=== PATIENT | male | born 1990 | race Caucasian/White ===

== ENCOUNTER 2019-01-10 06:25 | Inpatient (IN) | payer MEDICAID ==
[2019-01-10] VITALS (10 sets, daily range): BP systolic 149–169; BP diastolic 76–99; BMI 20.9; BMI 25.1
[~2019-01-10] VITALS: Ht 180.3 cm; Wt 68.2 kg
[2019-01-10 07:09] LABS: HEMATOCRIT 35.3 % (42.0-54.0); HEMOGLOBIN 11.1 g/dL (13.5-17.5); MCH 30.1 pg (26.0-34.0); MCHC 31.4 g/dL (31.0-37.0); MCV 95.7 fL (80.0-100.0); MEAN PLATELET VOLUME 10.2 fL (7.4-10.4); RBC 3.69 10x6/uL (4.20-6.10); WBC 7.7 10x3/uL (4.8-10.8)
[2019-01-10 07:16] LABS: CALCIUM 9.1 mg/dL (8.5-10.1); CARBON DIOXIDE 25.6 mmol/L (21.0-32.0); CREATININE - SERUM 10.3 mg/dL (0.6-1.3); POTASSIUM - SERUM 5.6 mmol/L (3.5-5.1)
[2019-01-10] MEDS ORDERED: DULCOLAX5 MG PO (07:26)
--- NOTE | 2019-01-10 07:26 | NUR ---
Called anesthesia (VAL) AND ASKED ABOUT PT BP (189/114), STATED TO REPEAT PT REGULARLY SCHEDULED 25MG HYDRALAZINE PO WITH PRE PROCEDURE MEDICATIONS.
[2019-01-10] MEDS ORDERED: RENVELA800 MG PO (07:27)
[2019-01-10] MEDS ORDERED: LONITEN2.5 MG PO (07:27)
[2019-01-10] MEDS ORDERED: COZAAR100 MG PO (07:28)
[2019-01-10] MEDS ORDERED: ZOLOFT50 MG PO (07:28)
[2019-01-10] MEDS ORDERED: METOPROLOL TART50 MG PO (07:28)
[2019-01-10] MEDS ORDERED: NEPHRO-VITE RX1 TAB PO (07:29)
[2019-01-10] MEDS ORDERED: HYDRALAZINE HCL25 MG PO (07:29)
[2019-01-10] MEDS ORDERED: CATAPRES0.3 MG PO (07:30)
--- NOTE | 2019-01-10 14:07 | PN ---
PATIENT:TANISHA FLOOD MEDICAL RECORD: [id number] LOCATION:D.OPS ADMISSION DATE: 01/10/19 PROGRESS NOTE DATE OF SERVICE: 01/10/2019 I have discussed this patient with Dr. Adames. He has a large pleural effusion. This is impairing his ability to ventilate. He is on O2 around the clock. He is very orthopneic. He is too high risk for general anesthesia today. We will reschedule him for his laparoscopic cholecystectomy at another time. We have initiated a pulmonology consultation to see if a thoracentesis could be performed today. TRANSINT:[id number] Voice Confirmation ID: [id number] DOCUMENT ID: [id number] LESLIE RAGLAND MD at 1407 CC: [id number] DICTATION DATE: 01/10/19 1013 IP COUNSEL: 01/10/19 1345 REG [facility] [address] [id number]
--- NOTE | 2019-01-10 14:33 | NUR ---
1345-DR YORK HERE TO SEE PATIENT. 1415-DR RAGLAND NOTIFIED OF DR YORK'S RECOMMENDATIONS FOR CARE, ORDERS RECD. 1430-TERRY BE FOR DR BURKS NOTIFIED OF CONSULT. ORDERS RECD.
[2019-01-10 14:54] LABS: INR 1.2 (0.85-1.17); PROTIME 14.7 SECONDS (11.6-15.0)
[2019-01-10 14:55] LABS: APTT 37.5 SECONDS (22.8-39.4)
[2019-01-10 15:33] LABS: % SATURATION 13 % (15-55); IRON 33 ug/dl (35-150); TOTAL IRON BIND CAPACITY 247 ug/dl (260-445); UNSAT IRON BIND CAPACITY 214 ug/dl (150-375)
--- NOTE | 2019-01-10 15:55 | NUR ---
RECIVED FROM OP XRAY TO ROOM 2128. RT SIDE DRSG WITH DRAINAGE MARKED.
[2019-01-10 16:22] LABS: PROTEIN - BODY FLUID 2.5 G/DL
--- NOTE | 2019-01-10 17:45 | NUR ---
WITHOUT CHANGES OR DISTRESS NOTED AT THIS TIME. GAURDS REMAIN AT SIDE
[2019-01-10 18:56] LABS: EOS BF 3 %; MACROPHAGES BF 73 %; NEUT - BF 6 %
--- NOTE | 2019-01-10 19:15 | NUR ---
BEDSIDE REPORT RECEIVED FROM DAY SHIFT, PT CARE ASSUMED. INTRODUCED SELF AND WROTE NAME ON BOARD. PT SITTING UP IN BED AAOX4, DENIES ANY NEEDS AT THIS TIME. OFFICER VERNA AT BEDSIDE. BED IN LOWEST POSITION, SR X2, CALL LIGHT WITHIN REACH. WILL CONTINUE TO MONITOR.
--- NOTE | 2019-01-10 20:00 | NUR ---
PT TO DIALYSIS VIA BED, ACCOMPANIED BY JANIE GRECO, AND OFFICER VERNA.
--- NOTE | 2019-01-10 23:22 | NUR ---
PT BACK TO ROOM VIA BED ACCOMPANIED BY JANIE GRECO, AND OFFICER VERNA. NIGHT TIME MEDS ADMINISTERED, PER ORDER. DENIES ANY OTHER NEEDS AT THIS TIME. BED IN LOWEST POSITION, SR X1, CALL LIGHT WITHIN REACH. WILL CONTINUE TO MONITOR.
[2019-01-11 00:45] VITALS: BP 168/89
--- NOTE | 2019-01-11 02:28 | NUR ---
PT LYING IN BED WITH EYES CLOSED, RR EVEN AND NONLABORED, NO S/S OF DISTRESS, AROUSES EASILY BY VOICE. DENIES ANY NEEDS AT THIS TIME. BED IN LOWEST POSITION, SR X2, CALL LIGHT WITHIN REACH. OFFICER VERNA AT BEDSIDE. WILL CONTINUE TO MONITOR.
[2019-01-11 04:30] VITALS: BP 190/103
[2019-01-11 04:53] LABS: BASOPHILS 0.8 % (0-2); HEMATOCRIT 30.7 % (42.0-54.0); HEMOGLOBIN 9.9 g/dL (13.5-17.5); IMMATURE GRANULOCYTES 0.2 % (0-5); LYMPHOCYTES 18.4 % (15-50); MCH 30.4 pg (26.0-34.0); MCHC 32.2 g/dL (31.0-37.0); MCV 94.2 fL (80.0-100.0); MEAN PLATELET VOLUME 10.3 fL (7.4-10.4); MONOCYTES 8.5 % (2-11); NEUTROPHILS 67.1 % (40-80); PLATELET COUNT 107 10x3/uL (130-400); RBC 3.26 10x6/uL (4.20-6.10); RDW 14.8 % (11.5-14.5); WBC 6.6 10x3/uL (4.8-10.8)
[2019-01-11 05:26] LABS: ALBUMIN 3.7 g/dL (3.4-5.0); ALKALINE PHOSPHATASE 99 U/L (46-116); ALT (SGPT) 12 U/L (10-68); BILIRUBIN - TOTAL 1.06 mg/dL (0.2-1.3); CALCIUM 8.5 mg/dL (8.5-10.1); CARBON DIOXIDE 29.6 mmol/L (21.0-32.0); CHLORIDE - SERUM 102 mmol/L (98-107); CKMB 3.7 U/L (0.0-3.6); CREATINE KINASE 181 UL (21-232); CREATININE - SERUM 8.2 mg/dL (0.6-1.3); GLUCOSE 97 mg/dL (74-106); LDH 184 U/L (85-227); MAGNESIUM - SERUM 2.5 mg/dL (1.8-2.4); PHOSPHOROUS 7.8 mg/dL (2.5-4.9); POTASSIUM - SERUM 5.2 mmol/L (3.5-5.1); PROTEIN - SERUM 6.8 g/dL (6.4-8.2); SODIUM 140 mmol/L (136-145); eGFR NON AFRICAN AMERICAN 8 mL/min (90-120)
[2019-01-11 06:03] LABS: CALC OSMOLALITY 291 mosm/kg (275-300); PRO BNP 78481 pg/mL (0-125); UREA NITROGEN 49 mg/dL (7-18)
--- NOTE | 2019-01-11 07:54 | NUR ---
REPORT RECEIVED. PT IS RESTING QUIETLY ON RIGHT SIDE. RISE AND FALL OF CHEST NOTICED. GAURD AT BEDSIDE. RR EVEN AND UNLABORED. HE HAS A R FA PIV INFUSING NS @ 10, HE HAS A L AV FISTULA WHICH MAKES HIM A L ARM RESERVE. HE IS WEARING 2L NC. BED LOCKED AND IN LOWEST POSITION. CALL LIGHT WITHIN REACH. WILL CTM
[2019-01-11 08:55] VITALS: BP 190/100
--- NOTE | 2019-01-11 11:59 | NUR ---
EAMON BHAT APN CALLED R/T B/P 210/. THIS WAS TAKEN TWICE BY ANNA TRAN LPN. NEW ORDERS RECEIVED.
--- NOTE | 2019-01-11 12:04 | NUR ---
URINE AND UDS CANCELLED PATIENT DOES NOT MAKE URINE AT ALL. STRICTTLY HEODIALYSIS.
--- NOTE | 2019-01-11 12:04 | NUR ---
PT IS ANURIC. HE DOES NOT PRODUCE URINE FOR URINE SAMPLE
[2019-01-11 12:10] VITALS: BP 200/109
[2019-01-11 14:44] VITALS: BMI 25.1
--- NOTE | 2019-01-11 15:01 | NUR ---
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
[2019-01-11 15:41] VITALS: BP 179/90
--- NOTE | 2019-01-11 16:13 | NUR ---
MAE FRENCH PUSHED HYDRALAZINE FOR JAYSON TRAN
[2019-01-11 17:08] LABS: AFB SPECIMEN PROCESSING Concentration (())
--- NOTE | 2019-01-11 18:50 | NUR ---
EVENING ROUNDS COMPLETE. PT SITTING UP IN BED. GAURD AT BEDSIDE. NO SIGNS OF DISTRESS. PT DENIES ANY PAIN OR NEEDS AT THIS TIME. AAOX4, VSS. CL IN REACH, BED IN LOWEST POSITION.
[2019-01-11 20:00] VITALS: BP 146/80
[2019-01-11] MEDS ORDERED: HYDRALAZINE HCL25 MG PO (20:04)
[2019-01-11] MEDS ORDERED: ZOLOFT100 MG PO (20:05)
[2019-01-12 00:01] VITALS: BP 175/90
[2019-01-12 04:00] VITALS: BP 181/102
[2019-01-12 05:38] LABS: BASOPHILS 0.5 % (0-2); EOSINOPHILS 4.8 % (0-7); HEMATOCRIT 29.3 % (42.0-54.0); HEMOGLOBIN 9.3 g/dL (13.5-17.5); IMMATURE GRANULOCYTES 0.2 % (0-5); LYMPHOCYTES 15.5 % (15-50); MCH 29.9 pg (26.0-34.0); MCHC 31.7 g/dL (31.0-37.0); MCV 94.2 fL (80.0-100.0); MEAN PLATELET VOLUME 10.4 fL (7.4-10.4); MONOCYTES 9.4 % (2-11); NEUTROPHILS 69.6 % (40-80); PLATELET COUNT 115 10x3/uL (130-400); RBC 3.11 10x6/uL (4.20-6.10); RDW 15.1 % (11.5-14.5); WBC 6.1 10x3/uL (4.8-10.8)
[2019-01-12 06:34] LABS: ALBUMIN 3.5 g/dL (3.4-5.0); ANION GAP 19.3 mmol/L (8-16); BILIRUBIN - TOTAL 0.82 mg/dL (0.2-1.3); CALCIUM 8.8 mg/dL (8.5-10.1); CARBON DIOXIDE 27.3 mmol/L (21.0-32.0); MAGNESIUM - SERUM 2.7 mg/dL (1.8-2.4); POTASSIUM - SERUM 5.6 mmol/L (3.5-5.1); PROTEIN - SERUM 6.5 g/dL (6.4-8.2)
[2019-01-12 06:36] LABS: CREATININE - SERUM 10.9 mg/dL (0.6-1.3); PHOSPHOROUS 9.6 mg/dL (2.5-4.9)
--- NOTE | 2019-01-12 06:55 | NUR ---
REPORT RECEIVED. ALERT ABLE TO VOICE NEEDS. GUARD AT BEDSIDE. NO C/O PAIN AT THIS TIME. BED IN LOWEST POSITION AND LOCKED. CAREPLAN REVIEW DONE WITH SAFETY PRECAUTIONS IN PLACE.
[2019-01-12 08:00] VITALS: BP 162/83
--- NOTE | 2019-01-12 10:40 | NUR ---
ORDER FOR URINE TO BE COLLECTED. HE IS ESRD AND HAS ANURIA. UNABLE TO COLLECT SPECIMEN
--- NOTE | 2019-01-12 12:37 | NUR ---
I CALLED DR YORK TO SEE ABOUT ANY MEDICATIONS FROM HIS STANDPOINT. HE SAID HE WILL COME SEE THE PATIENT AND THAT CARDIOLOGY NEEDS TO SEE PATIENT BEFORE DISCHARGE. DUNCAN, SIEBEL CRM DEVELOPER TELL ME THAT TIERRA COOPER APN CANCELLED THE CONSULT. WILL CHECK WITH DR YORK WHEN HE SEES THE PATIENT.
--- NOTE | 2019-01-12 12:52 | MORECARE ---
CASE MANAGEMENT DISCHARGE SUMMARY PATIENT: TANISHA FLOOD UNIT: [id number] ADM DATE: 01/10/19 AGE: 28 : 90 SEX: M ROOM/BED: D.3305 AUTHOR: SAE MAYER PHYSICIAN: REFERRING PHYSICIAN: LESLIE RAGLAND MD DATE OF SERVICE: 01/12/19 Discharge Plan Patient Name: TANISHA FLOOD Facility: [facility]:[place] : 1990 Planned Disposition: Anticipated Discharge Date: Discharge Date: Expected LOS: Initial Reviewer: [email or web address] Initial Review Date: 01/12/2019 Generated: 01/12/19 1:52 pm Comments DCP- Discharge Planning Updated by [email or web address]: Jefry Duncan on 01/12/19 11:[address] Patient Name: TANISHA FLOOD Admission Status: Elective Accout number: [id number] Admission Date: 01-10-2019 : 1990 Admission Diagnosis: Attending: LESLIE RAGLAND Current LOS: 2 Anticipated DC Date: Planned Disposition: Primary Insurance: MEDICAID [employer] PENDING Discharge Planning Comments: CM ATTEMPTED TO MEET WITH PT FOR INITIAL ASSESSMENT OF DISCHARGE NEEDS. PT WAS NOT IN ROOM AT APPROXIMATELY 1155 HOURS. CM ADVISED BY SUCTION DRUM DRIER OPERATOR THAT PT IS IN DIALYSIS. CM TO ATTEMPT ASSESSMENT OF PT AT A LATER TIME Wrong Address Clerk: Jefry Duncan Patient Name: TANISHA FLOOD Page [phone] at 1252 All edits/amendments must be made on the electronic document DICTATION DATE: 01/12/19 125 SHAKER OUT: ROSA ELENA 01/12/19 1252 RPT#: [id number] DC DATE: STATUS: ADM IN [facility] [address] [place] [address] END OF REPORT
[2019-01-12 13:47] VITALS: Ht 180.3 cm; Wt 68.2 kg
[2019-01-12 14:09] LABS: FUNGUS STAIN Final report (())
--- NOTE | 2019-01-12 15:07 | NUR ---
NEW ORDERS FROM DR YORK.
[2019-01-12] MEDS ORDERED: IPRAT-ALBUT 0.5-3 ML UPD (15:10)
[2019-01-12 16:04] VITALS: BP 95/56
--- NOTE | 2019-01-12 16:18 | MORECARE ---
CASE MANAGEMENT DISCHARGE SUMMARY PATIENT: TANISHA FLOOD UNIT: [id number] ADM DATE: 01/10/19 AGE: 28 : 90 SEX: M ROOM/BED: D.9458 AUTHOR: SAE MAYER PHYSICIAN: REFERRING PHYSICIAN: LESLIE RAGLAND MD DATE OF SERVICE: 01/12/19 Discharge Plan Patient Name: TANISHA FLOOD Facility: [facility]:[place] : 1990 Planned Disposition: Court\Law Enforcement Anticipated Discharge Date: 01/12/19 Discharge Date: Expected LOS: 2 Initial Reviewer: [email or web address] Initial Review Date: 01/12/2019 Generated: 01/12/19 5:18 pm Comments DCP- Discharge Planning Updated by [email or web address]: Jefry Duncan on 01/12/19 11:[address] Patient Name: TANISHA FLOOD Admission Status: Elective Accout number: [id number] Admission Date: 01-10-2019 : 1990 Admission Diagnosis: Attending: LESLIE RAGLAND Current LOS: 2 Anticipated DC Date: Planned Disposition: Primary Insurance: MEDICAID ASSISTED PENDING Discharge Planning Comments: CM ATTEMPTED TO MEET WITH PT FOR INITIAL ASSESSMENT OF DISCHARGE NEEDS. PT WAS NOT IN ROOM AT APPROXIMATELY 1155 HOURS. CM ADVISED BY CAN PUSHER THAT PT IS IN DIALYSIS. CM TO ATTEMPT ASSESSMENT OF PT AT A LATER TIME Sql Developer Dba: Jefry Duncan Last DP export: 01/12/19 11:52 Patient Name: TANISHA FLOOD Page [phone] at 1618 All edits/amendments must be made on the electronic document DICTATION DATE: 01/12/191617 SILK SCREEN ETCHER: ROSA ELENA 01/12/191617 RPT#: [id number] DC DATE: STATUS: ADM IN [facility] [address] [place] [address] END OF REPORT
--- NOTE | 2019-01-12 16:27 | MORECARE ---
CASE MANAGEMENT DISCHARGE SUMMARY PATIENT: TANISHA FLOOD UNIT: [id number] ADM DATE: 01/10/19 AGE: 28 : [birth year] SEX: M ROOM/BED: D.3168 AUTHOR: MORENO,DOC PHYSICIAN: REFERRING PHYSICIAN: LESLIE RAGLAND MD DATE OF SERVICE: 01/12/19 Discharge Plan Patient Name: TANISHA FLOOD Facility: [facility]:[place] : 1990 Planned Disposition: Court\Law Enforcement Anticipated Discharge Date: 01/12/19 Discharge Date: Expected LOS: 2 Initial Reviewer: [email or web address] Initial Review Date: 01/12/2019 Generated: 01/12/19 5:27 pm Comments DCP- Discharge Planning Updated by [email or web address]: Jefry Duncan on 01/12/19 3:[address] Patient Name: TANISHA FLOOD Admission Status: Elective Accout number: [id number] Admission Date: 01-10-2019 : 1990 Admission Diagnosis: Attending: LESLIE RAGLAND Current LOS: 2 Anticipated DC Date: 01-12-2019 Planned Disposition: Court\Law Enforcement Primary Insurance: MEDICAID LONG-TERM PENDING Discharge Planning Comments: CM MET WITH PT AND RADIO STATION MANAGER IN ROOM TO DISCUSS DISCHARGE PLANNING AND NEEDS. PT REPORTS LIVING AT THE LONG-TERM IN [place]. PT REPORTS BEING UP FOR PAROLE REVIEW IN FEBRUARY 2019. PT WEARS OXYGEN AT NIGHT FOR SLEEP APNEA AND HAS A WHEELCHAIR. PT HAS CPAP AT HOME, BUT NOT IN LONG-TERM. PT RECEIVES DIALYSIS ON MWF SCHEDULE IN THE LONG-TERM.. PT DENIES DISCHARGE NEEDS, PT'S GUARD REPORT HE WILL ARRANGE LONG-TERM TRANSPORTATION FOR CONVEYOR [employer]ER [employer] TODAY AT DISCHARGE. Consultant Electronics: Jefry Duncan DCP- Discharge Planning Updated by [id number]: Jefry Duncan on 01/12/19 11:[address] Patient Name: TANISHA FLOOD Admission Status: Elective Accout number: [id number] Admission Date: 01-10-2019 : 1990 Admission Diagnosis: Attending: LESLIE RAGLAND Current LOS: 2 Anticipated DC Date: Planned Disposition: Primary Insurance: MEDICAID LONG-TERM PENDING Discharge Planning Comments: CM ATTEMPTED TO MEET WITH PT FOR INITIAL ASSESSMENT OF DISCHARGE NEEDS. PT WAS NOT IN ROOM AT APPROXIMATELY 1155 HOURS. CM ADVISED BY WIRELINE FIELD OPERATOR THAT PT IS IN DIALYSIS. CM TO ATTEMPT ASSESSMENT OF PT AT A LATER TIME Consultant Electronics: Jefry Duncan DCPIA - Discharge Planning Initial Assessment Updated by [email or web address]: Jefry Duncan on 01/12/19 4:21 pm * Is the patient Alert and Oriented? Yes * How many steps to enter\exit or inside your home? NONE * PCP DR. MARRERO, [facility] * Pharmacy [facility] * Preadmission Environment Other * Other Environment [facility] * Facility Name [facility] * ADLs Partial Dependent * Partial ADLs (Assistance needed) Transfers * Equipment Oxygen Wheelchair * Other Equipment PT USES OXYGEN AT NIGHT AT LONG-TERM PT HAS HOME CPAP, BUT NOT IN LONG-TERM * List name and contact numbers for known caregivers / representatives who currently or will assist patient after discharge: [facility], * Verbal permission to speak to the caregivers and representatives has been obtained from the patient. N/A * Community resources currently utilized Other * Please name any agencies selected above. HEMODIALYSIS, MWF, PROVIDED BY [facility] * Additional services required to return to the preadmission environment? No * Can the patient safely return to the preadmission environment? Yes * Has this patient been hospitalized within the prior 30 days at any hospital? No Last DP export: 01/12/19 3:18 Patient Name: TANISHA FLOOD Page [phone] at 1627 All edits/amendments must be made on the electronic document DICTATION DATE: 01/12/191626 TRANSPORTATION LOGISTICS INTERNSHIP: ROSA ELENA 01/12/191626 RPT#: [id number] [place] DATE: STATUS: ADM IN [facility] [address] [place] [address] END OF REPORT
--- NOTE | 2019-01-12 18:24 | NUR ---
DISCHARGE INSTRUCTIONS EXPLAINED IN DETAIL. REPORT WAS CALLED TO [facility] TO [facility]. HE IS AWAITING TRANSPORT. THEY WILL CALL OPERATIONS SUPERINTENDENT LIGHT WHEN RIDE IS HERE SO SALINE LOCK CAN BE D/C.
--- NOTE | 2019-01-12 19:00 | NUR ---
[facility] HERE FOR TRANSPORT. [facility] LOCK D/C WITH CATH TIP INTACT. HE IS IN STABLE CONDITION WITH NO C/O.
--- NOTE | 2019-01-15 11:10 | EC ---
PATIENT:TANISHA FLOOD DATE OF SERVICE: 01/10/19 SEX: M MEDICAL RECORD: [id number] DATE OF : [birth year] LOCATION:D.M2 D.212 AGE OF PATIENT: 28 ADMISSION DATE: 01/10/19 REFERRING PHYSICIAN: INTERPRETING PHYSICIAN: MARAL BAHENA MD ECHOCARDIOGRAM REPORT ECHO CHARGES 4 ECHO COMPLETE Date: 01/11/19 CLINICAL DIAGNOSIS: CHF ECHOCARDIOGRAPHIC MEASUREMENTS (adult normal given) AC root (d.<3.7cm) 3.1 cm LV Septum d (<1.2 cm> 1.8 cm Valve Excursion 2.0 cm LV Septum (systole) 2.4 cm Left Atria (s.<4.0cm> 5.7 cm LVPW d(<1.2cm) 1.6 cm RV (d.<2.3cm) 3.3 cm LVPW (sytole) 2.4 cm LV diastole(<5.6CM) 7.3 cm MV E-F(>70mm/sec) cm LV systole 4.5 cm LVOT Diameter 2.1 cm MV exc.(>10mm) cm Est.ejection fraction (50-75%) % DOPPLER: LVIT cm/sec A 67.0 cm/sec E 163 cm/sec LA cm/sec RVSP 83.4 mmHg LVOT 133 cm/sec AOP1/2T m/s Asc. Ao 285 cm/sec RVOT 79.0 cm/sec RA cm/sec PA 130 cm/sec AV Gradient Peak 32.4 mmHg AV Mean 15.0 mmHg AV Area 1.5 cm MV Gradient Peak 20.0 mmHg MV Mean 5.9 mmHg MV Area cm COMMENTS: Tuckpointer: Marin LINKOE Inspector Filters: 1 Dr. Bahena TAPE# PACS Pericardial Effusion Y DATE OF SERVICE: ECHOCARDIOGRAM FINDINGS: 1. Left ventricular chamber size is dilated. Left ventricular systolic function is markedly reduced, overall ejection fraction 25%. 2. Left atrium is dilated at 5.7 cm. Right atrium and right ventricular chamber sizes are as well moderately dilated. 3. Valvular structures have normal structure and motion. ECHOCARDIOGRAM REPORT [id number] TANISHA FLOOD 4. Doppler interrogation reveals [id number] aortic insufficiency, moderate mitral regurgitation, severe tricuspid regurgitation, no other valvular insufficiency or stenosis. Pulmonary systolic pressure is elevated estimated at 83 mmHg. 5. No evidence of pericardial effusion or left ventricular thrombus. TRANSINT:[id number] Voice Confirmation ID: [id number] DOCUMENT ID: [id number] MARAL BAHENA MD at 1110 CC: [id number] DICTATION DATE: 01/12/19 0938 DIVERSITY INTERN: 01/12/19 1103 DIS IN 01/12/19 [facility] [address] [id number]
--- NOTE | 2019-01-15 14:05 | DS ---
PATIENT:TANISHA FLOOD :[birth year] MEDICAL RECORD: [id number] DISCHARGE SUMMARY ADMISSION DATE: 01/10/19 DISCHARGE DATE: 01/12/19 CHIEF COMPLAINT: 1. Respiratory failure. 2. Anemia of chronic disease. 3. Gallbladder disease. 4. End-stage renal disease with noncompliance. 5. Hypertension. 6. Congestive heart failure. 7. History of pericardial effusion. 8. History of seizure disorder. 9. Large right-sided pleural effusion. DIAGNOSES: 1. Chronic back pain. 2. Depression and anxiety. 3. Bipolar disorder. 4. History of meth use. 5. History of left AV fistula placement. 6. History of hernia repair. 7. History of appendectomy. 8. He is on oxygen at night out at the senior living. 9. Cardiomegaly. 10. Acute hypoxic respiratory failure. 11. Right lower lobe compression atelectasis. 12. History of acute cough due to congestive heart failure. 13. Thrombocytopenia. PROCEDURE: Right thoracentesis. HOSPITAL COURSE: The patient was to undergo cholecystectomy. He was found to be quite orthopneic and requiring significant amount of oxygen. Chest x-ray revealed a large right pleural effusion. His operation was canceled. He was seen by the nephrology service. The pulmonology service saw him as well. He was breathing better after the thoracentesis. He is being dismissed back to the senior living. I have done the doc-to-doc transfer discussion with Dr. Tillman. We will reschedule his operation for some time in the future. It is very likely he will need to be admitted the day before surgery in order to optimize his medical therapy. TRANSINT:[id number] Voice Confirmation ID: [id number] DOCUMENT ID: [id number] LESLIE RAGLAND MD at 1405 CC: ROGELIO SHEARER MD and LAVELLE TILLMAN [id number] DICTATION DATE: 01/12/19 1120 PERCUSSION TUNER: 01/12/19 1310 DIS IN 01/12/19 [facility] [address] [id number]
--- NOTE | 2019-01-30 14:25 | HP ---
PATIENT: TANISHA FLOOD MEDICAL RECORD: [id number] ACCOUNT: [id number] LOCATION:[address] : [birth year] ADMISSION DATE: 01/10/19 PCP: No PCP HISTORY AND PHYSICAL EXAMINATION CHIEF COMPLAINT: 1. Right pleural effusion. 2. End-stage renal disease. 3. Hyperkalemia. 4. Normocytic anemia. 5. Chronic cholecystitis. 6. History of seizure disorder. 7. Anxiety and depression. 8. Bipolar disorder. 9. Iron-deficiency anemia. 10. Thrombocytopenia. 11. Hyponatremia. 12. Anion gap metabolic acidosis. PROCEDURE: Right CT-guided thoracentesis. The patient was to undergo surgery. He was found to be quite orthopneic and his operation was canceled. He underwent a therapeutic thoracentesis. He was seen by the hospitalist service as well as the nephrology service and the pulmonology service. He was dismissed back to the group home. We are going to reschedule his gallbladder operation for some time in the future. TRANSINT:[id number] Voice Confirmation ID: [id number] DOCUMENT ID: [id number] LESLIE RAGLAND MD at 1425 CC: [id number] DICTATION DATE: 01/19/19914 [place] M[place] OPERATOR: 01/19/19952 DIS IN 01/12/19 [id number] [place] [address]
[2019-02-07 07:14] LABS: FUNGUS MYCOLOGY CULTURE Final report (())
[2019-03-04 08:08] LABS: ACID FAST CULTURE Negative (()); ACID FAST SMEAR Negative (())
== END 2019-01-12 19:00 | DRG 291 ==
LOC: D.OPS 06:25 → D.M2 15:01
PROVIDERS: Anesthesiology; Internal Medicine Nephrology; Internal Medicine Pulmonary Disease; Radiology Vascular & Interventional Radiology; ADMIT Surgery; ATTEND Surgery
PROC: 5A1D70Z Performance of Urinary Filtration, Intermittent, Less than 6 Hours Per Day (ICD-10-PCS; 2019-01-10)
PROC: 0W993ZZ Drainage of Right Pleural Cavity, Percutaneous Approach (ICD-10-PCS; principal; 2019-01-10 15:00)
DX: I13.2 Hypertensive heart and chronic kidney disease with heart failure and with stage 5 chronic kidney disease, or end stage renal disease (principal); I50.23 Acute on chronic systolic (congestive) heart failure; N18.6 End stage renal disease; J96.01 Acute respiratory failure with hypoxia; J98.11 Atelectasis; E87.0 Hyperosmolality and hypernatremia; F17.213 Nicotine dependence, cigarettes, with withdrawal; I16.9 Hypertensive crisis, unspecified; J44.9 Chronic obstructive pulmonary disease, unspecified; K81.1 Chronic cholecystitis; F41.8 Other specified anxiety disorders; E87.5 Hyperkalemia; D69.6 Thrombocytopenia, unspecified; D50.9 Iron deficiency anemia, unspecified; G40.909 Epilepsy, unspecified, not intractable, without status epilepticus

== ENCOUNTER 2019-02-16 10:55 | Inpatient (IN) | payer MEDICAID ==
[~2019-02-16] VITALS: Ht 180.3 cm; Wt 63.3 kg
[2019-02-16] VITALS (14 sets, daily range): BP systolic 146–207; BP diastolic 88–134
[~2019-02-16 10:55] MED LIST: CATAPRES0.3 MG PO; COZAAR100 MG PO; DULCOLAX5 MG PO; HYDRALAZINE HCL25 MG PO; IPRAT-ALBUT 0.5-3 ML UPD; LONITEN2.5 MG PO; METOPROLOL TART50 MG PO; NEPHRO-VITE RX1 TAB PO; RENVELA800 MG PO; ZOLOFT100 MG PO; ZOLOFT50 MG PO
[2019-02-16 11:47] LABS: APTT 34.5 SECONDS (22.8-39.4); INR 1.16 (0.85-1.17); PROTIME 14.3 SECONDS (11.6-15.0)
[2019-02-16 11:56] LABS: ALBUMIN 4.1 g/dL (3.4-5.0); ALKALINE PHOSPHATASE 117 U/L (46-116); ALT (SGPT) 27 U/L (10-68); BILIRUBIN - TOTAL 0.64 mg/dL (0.2-1.3); CALC OSMOLALITY 303 mosm/kg (275-300); CALCIUM 9.1 mg/dL (8.5-10.1); CHLORIDE - SERUM 106 mmol/L (98-107); CKMB 3.4 U/L (0.0-3.6); CREATINE KINASE 150 UL (21-232); CREATININE - SERUM 9.3 mg/dL (0.6-1.3); GLUCOSE 115 mg/dL (74-106); PROTEIN - SERUM 7.4 g/dL (6.4-8.2); SODIUM 144 mmol/L (136-145); UREA NITROGEN 57 mg/dL (7-18); eGFR NON AFRICAN AMERICAN 7 mL/min (90-120)
[2019-02-16 11:59] LABS: HEMATOCRIT 33.7 % (42.0-54.0); HEMOGLOBIN 10.9 g/dL (13.5-17.5); MCH 30.7 pg (26.0-34.0); MCHC 32.3 g/dL (31.0-37.0); MCV 94.9 fL (80.0-100.0); MEAN PLATELET VOLUME 9.5 fL (7.4-10.4); NEUTROPHILS 85.4 % (40-80); PLATELET COUNT 157 10x3/uL (130-400); RBC 3.55 10x6/uL (4.20-6.10); RDW 15.7 % (11.5-14.5); WBC 15.4 10x3/uL (4.8-10.8)
[2019-02-16 12:01] LABS: POTASSIUM - SERUM 6.3 mmol/L (3.5-5.1); TROPONIN-I 0.069 ng/mL (0.000-0.060)
[2019-02-16 12:44] LABS: PRO BNP 199340 pg/mL (0-125)
--- NOTE | 2019-02-16 13:24 | NUR ---
REPORT TO SAE FROM DIALYSIS
--- NOTE | 2019-02-16 13:24 | NUR ---
REPORT TO MAE MITCHELL IN ICU. PT TO BE ADMITTED TO ROOM 6. ROOM NOT CLEAN.
[2019-02-16] MEDS ORDERED: DILTIAZEM 24HR360 M4 PO (13:55)
[2019-02-16] MEDS ORDERED: FOLIC ACID1 MG PO (13:55)
[2019-02-16] MEDS ORDERED: LISINOPRIL40 MG PO (13:56)
[2019-02-16] MEDS ORDERED: COREG25 MG PO (13:56)
[2019-02-16] MEDS ORDERED: ALDACTONE50 MG PO (13:56)
[2019-02-16] MEDS ORDERED: APAP325 MG PO (13:57)
--- NOTE | 2019-02-16 14:11 | NUR ---
PT TO ROOM 2306. ON BIPAP. BP 177/117. LET DR BURKS KNOW. PT TO GET DIALYSIS. RESERVE LEFT ARM. WILL MONITOR.
--- NOTE | 2019-02-16 15:01 | NUR ---
PT GONE TO CT FOR RIGHT THORACENTESIS. ON BIPAP AT 45%.
--- NOTE | 2019-02-16 15:45 | NUR ---
PT BACK FROM THORACENTESIS. 2000ML FLUID REMOVED. HR 74; O2 SAT 100% ON 40% BIPAP; BP 182/119. PT COMPLAINS OF HEADACHE. PAIN MEDICATION NOT AVAILABLE TO GIVE FOR ANOTHER 2 HOURS. WILL GIVE WHEN AVAILABLE.
--- NOTE | 2019-02-16 17:15 | NUR ---
NO BLOOD PRESSURE MEDICATIONS ORDERED AT THIS TIME. SPOKE WITH TERRY RENNER. STATED HE WOULD ORDER PRN HYDRALAZINE.
--- NOTE | 2019-02-16 19:30 | NUR ---
REPORT RECEIVED. INITIAL ASSESSMENT COMPLETE. DIALYSIS NURSE AT BEDSIDE TREATMENT ALMOST COMPLETE VIA FISTULA LEFT ARM FISTULA IS PROMINENT AND LARGE BUT PT STATES IT IS NORMAL FOR HIM. PT ALERT AND ORIENTED WITH BIPAP IN PLACE CM READING SR ALARMS ON AND AUDIBLE. HYPERTENSIVE DAY SHIFT NURSE HAD JUST GIVEN HOME BP MEDS AND AN ADDITIONAL HYDRALAZINE PRN WILL CONTINUE TO MONITOR SINCE MEDS WERE PO. BREATH SOUNDS CLEAR PT HAS DRESSING TO RIGHT SIDE OF BACK FROM PROCEDURE TODAY DRESSING CLEAN DRY AND INTACT. BED LOW POSITION SIDE RAILS UP TIMES 3 CALL LIGHT IN REACH WILL CONTINUE TO MONITOR.
--- NOTE | 2019-02-16 20:00 | NUR ---
ANSWERED PTS CALL LIGHT PT C/O DISCOMFORT AT SITE OF THORACENTESIS. CHEST SOUNDS CLEAR NO REDNESS DRAINAGE AT DRESSING SITE NO S/S OF BLEEDING. INFORMED HE HAS PRN PAIN MED NOT ABLE TO GIVE YET. INFORMED SOME DISCOMFORT IS TO BE EXPECTED SINCE THIS WAS AN INVASIVE PROCEDURE. INFORMED TO REPORT TO NURSE IF CONDITION PERSISTS OR WORSENS. PT VERBALIZES GOOD UNDERSTANDING. VSS
--- NOTE | 2019-02-16 20:35 | NUR ---
JUD STEWART FOR VITALIY ON UNIT. INFORMED OF PT REQUEST FOR SOMETHING TO EAT AND THAT PT HAS IN THE PAST GOTTEN REDMANS FROM VANCOMYCIN HE SAID IT DID NOT BOTHER HIM IN ANY WAY HE JUST HAD THE RED FLUSH. ALSO INFORMED OF NEED FOR BIPAP ORDERS. ORDERS RECEIVED. PT ON O2 NC AT THIS TIME
--- NOTE | 2019-02-16 21:50 | NUR ---
FELLOW NURSE HAD ANSWERED CALL LIGHT PT REQUESTING PAIN MED FOR PROCEDURE SITE AND HEADACHE PT RATES 7 ON 1-10 SCALE SEE PRN EMAR.
--- NOTE | 2019-02-16 22:00 | NUR ---
ANSWERED PTS CALL LIGHT HE IS REQUESTING SANDWICH TRAY NO NAUSEA WITH JELLO. GIVEN TRAY WILL CONTINUE TO MONITOR
--- NOTE | 2019-02-16 22:08 | NUR ---
ANSWERED PTS CALL LIGHT HE IS REQUESTING WARM RAG TO WASH FACE.
--- NOTE | 2019-02-16 23:00 | NUR ---
REASSESSMENT MADE NO CHANGES PT DENIES PAIN CPOC VSS CL IN REACH
--- NOTE | 2019-02-16 23:30 | NUR ---
ANSWERED PTS CALL LIGHT HE WANTS PUDDING AND CRACKERS SNACK GIVEN
[2019-02-17] VITALS (11 sets, daily range): BP systolic 156–177; BP diastolic 92–119; Ht 180.3 cm; Wt 63.3 kg
--- NOTE | 2019-02-17 | NUR ---
ANSWERED PTS CALL LIGHT WANTS THE COBAN TAKEN OFF THAT WAS WRAPPED AROUND HIS RIGHT ARM PIV.
--- NOTE | 2019-02-17 02:40 | NUR ---
PT BP TRENDING UP MEDICATED WITH PRN HYDRALAZINE VILL CONTINUE TO MONITOR
--- NOTE | 2019-02-17 03:00 | NUR ---
REASSESSMENT MADE NO CHANGES CPOC WILL CONTINUE TO MONITOR
[2019-02-17 03:42] LABS: BASOPHILS 0.3 % (0-2); EOSINOPHILS 2.8 % (0-7); HEMATOCRIT 31.7 % (42.0-54.0); HEMOGLOBIN 9.8 g/dL (13.5-17.5); IMMATURE GRANULOCYTES 0.2 % (0-5); LYMPHOCYTES 9.1 % (15-50); MCH 30.2 pg (26.0-34.0); MCHC 30.9 g/dL (31.0-37.0); MEAN PLATELET VOLUME 9.8 fL (7.4-10.4); MONOCYTES 9.7 % (2-11); NEUTROPHILS 77.9 % (40-80); PLATELET COUNT 154 10x3/uL (130-400); RBC 3.25 10x6/uL (4.20-6.10); RDW 15.4 % (11.5-14.5)
[2019-02-17 03:51] LABS: MCV 97.5 fL (80.0-100.0); WBC 11.4 10x3/uL (4.8-10.8)
[2019-02-17 04:09] LABS: ANION GAP 12.8 mmol/L (8-16); CALCIUM 9.5 mg/dL (8.5-10.1); CARBON DIOXIDE 30.3 mmol/L (21.0-32.0); CREATININE - SERUM 6.7 mg/dL (0.6-1.3); MAGNESIUM - SERUM 2.4 mg/dL (1.8-2.4); PHOSPHOROUS 5.8 mg/dL (2.5-4.9); POTASSIUM - SERUM 5.1 mmol/L (3.5-5.1); VANCOMYCIN - RANDOM 10.9 ug/mL (10.0-20.0)
--- NOTE | 2019-02-17 04:25 | NUR ---
ANSWERED PTS CALL LIGHT REQUESTING PAIN MED STATES HEAD AND SITE ON BACK HURTING 7 ON 1-10 SCALE MEDICATED WITH PRN MED SEE EMAR
--- NOTE | 2019-02-17 05:20 | NUR ---
PT STATING HE IS NAUSEATED SEE EMAR PRN MED
--- NOTE | 2019-02-17 05:45 | NUR ---
PT REQUESTING ICE CREAM INFORMED SINCE HE WAS JUST MEDICATED FOR NAUSEA UNABLE TO GIVE HIM ANYTHING TO EAT AT THIS TIME
--- NOTE | 2019-02-17 07:34 | NUR ---
UP IN BED AWAKE AT THIS TIME. VSS. CALL LIGHT IN REACH. NO ACUTE DISTRESS NOTED. WILL CONTINUE PLAN OF CARE.
--- NOTE | 2019-02-17 09:34 | NUR ---
VANC DOSE SCHEDULED TO ADMIN NOW. PT RECIEVED DOSE LAST NIGHT. ORDER CHECKED WITH DR BURKS WHO STATED TO NOT GIVE THIS MED AND TO DC THE ONE TIME VANC ORDER. VSS. WILL CONTINUE PLAN OF CARE.
--- NOTE | 2019-02-17 11:29 | NUR ---
PER DR BURKS, RESTART HOME ZOLOFT.
--- NOTE | 2019-02-17 11:39 | NUR ---
PT COMPLAINT OF RT CHEST PAIN WHEN HE BREATHES IN STATING HE HAS FELT THIS DISCOMFORT SINCE AFTER THORACENTESIS YESTERDAY. PER DR YORK THIS IS AN EXPECTED PHYSIOLOGIC RESPONSE TO THORACENTESIS, ALSO PER DR PHAM, PRN TYLENOL ONLY: DC PRN MORPHINE. WILL CONTINUE PLAN FO CARE.
--- NOTE | 2019-02-17 12:02 | NUR ---
DR FRANCIS NOTIFIED OF CONSULT, STATED WILL SEE PT TODAY AND UNTIL THEN START DOBUTAMINE AT 5 SET RATE. NO ACUTE DISTRESS NOTED. WILL CONTINUE PLAN OF CARE.
--- NOTE | 2019-02-17 13:17 | NUR ---
EMESIS NOTED X 1 EPISODE. PRN ZOFRAN ADMIN. PT STATES HE THINKS HE GOT NAUSEATED BECAUSE HIS ROOM FEELS HOT. FAN ALSO PROVIDED. PT STATES HE FEELS MUCH BETTER. NO ACUTE DISTRESS NOTED. WILL CONTINUE PLAN OF CARE.
--- NOTE | 2019-02-17 14:05 | NUR ---
REPORT CALLED TO RECIEVING NURSE. WILL JEFNFER SHORTLY.
--- NOTE | 2019-02-17 14:54 | NUR ---
TRANSFERRED TO 2118 AT THIS TIME WITH ALL PERSONAL ITEMS VIA BED ACCOMPANIED BY HOSPITAL STAFF AND GUARD. VSS. NO FURTHER ACTIONS.
--- NOTE | 2019-02-17 14:55 | NUR ---
RECEIVED PT TO ROOM 2118 VIA BED FROM ICU PT AAOX4 RESP UNLABORED SKIN W/D DENIES ANY PAIN AT THIS TIME LT ARM FISTULA PATENT + BRUIT + THRILL TELEMETRY PLACED SR RATE 70 WILL CONTINUE TO MONITOR
[2019-02-18 05:29] LABS: BASOPHILS 0.3 % (0-2); EOSINOPHILS 4.6 % (0-7); HEMATOCRIT 27.6 % (42.0-54.0); HEMOGLOBIN 8.7 g/dL (13.5-17.5); IMMATURE GRANULOCYTES 0.1 % (0-5); MCH 30.3 pg (26.0-34.0); MCHC 31.5 g/dL (31.0-37.0); MCV 96.2 fL (80.0-100.0); MEAN PLATELET VOLUME 10.1 fL (7.4-10.4); MONOCYTES 9.8 % (2-11); NEUTROPHILS 70.2 % (40-80); PLATELET COUNT 140 10x3/uL (130-400); RBC 2.87 10x6/uL (4.20-6.10)
[2019-02-18 05:31] LABS: WBC 7.9 10x3/uL (4.8-10.8)
[2019-02-18 06:03] LABS: ALBUMIN 3.3 g/dL (3.4-5.0); BILIRUBIN - TOTAL 0.84 mg/dL (0.2-1.3); CALCIUM 9.5 mg/dL (8.5-10.1); CARBON DIOXIDE 30.2 mmol/L (21.0-32.0); POTASSIUM - SERUM 5.2 mmol/L (3.5-5.1); PROTEIN - SERUM 6.4 g/dL (6.4-8.2); VANCOMYCIN - RANDOM 17.9 ug/mL (10.0-20.0)
[2019-02-18 06:05] LABS: CREATININE - SERUM 9.8 mg/dL (0.6-1.3)
--- NOTE | 2019-02-18 07:17 | NUR ---
SLEEPING. AWAKENS EAISLY. TELEMERTY SHOWS SR 87. RIGHT AC SL AND RIGHT FOREARM WITH DOBUTAMINE AT 10.7. LEFT AVF NOTED. GUARD AT BEDSIDE. SR UP WITH CALL LIGHT IN REACH.
[2019-02-18 09:14] VITALS: BP 181/104
[2019-02-18 12:47] VITALS: BP 173/105
--- NOTE | 2019-02-18 13:37 | NUR ---
I have reviewed this patient and I concur with the Shift Assessment completed by the Licensed Practical Nurse today this shift.
--- NOTE | 2019-02-18 14:35 | NUR ---
LYING QUIETLY WITH EYES CLOSED. GUARD AT BEDSIDE. NO NEEDS NOTED. WILL MONITOR
[2019-02-18 18:21] VITALS: BP 140/80
--- NOTE | 2019-02-18 19:17 | NUR ---
INITIAL ROUNDS COMPLETED. PT DENIES ANY DISCOMFORT. CALL LIGHT WITHIN REACH.
[2019-02-18 20:00] VITALS: BP 159/74
--- NOTE | 2019-02-18 22:16 | NUR ---
ASSESSMENT COMPLETED AT 2009 HRS. VSS. SR PER CM HR 65. ALERT AND ORIENTED TO PERSON, PLACE AND TIME. MULLER. IV TO R WRIST AND RAC SL. L AVF WITH GOOD BRUIT AND THRILL. O2 3LNC. LUNGS DIMINISHED IN BASES BILAT. MULLER PLAPABLE PERIPHERAL PULSES. INCISION TO R ANTERIOR BACK CLEAN, DRY AND INTACT. PM MEDS GIVEN. PT CURRENTLY WATCHING TV. NO DISTRESS NOTED. SR UP X2, CALL LIGHT WITHIN REACH.
[2019-02-19] VITALS: BP 149/88
--- NOTE | 2019-02-19 00:35 | NUR ---
PT AWAKE; DENIES ANY DISCOMFORT. CALL LIGHT WITHIN REACH.
--- NOTE | 2019-02-19 01:48 | NUR ---
WATCHING TV. NO DISTRESS NOTED. CALL LIGHT WITHIN REACH.
--- NOTE | 2019-02-19 03:43 | NUR ---
PT AWAKE; DENIES ANY DISCOMFORT. CALL LIGHT WITHIN REACH.
[2019-02-19 04:00] VITALS: BP 174/90
--- NOTE | 2019-02-19 05:51 | NUR ---
VSS THROUGHOUT NIGHT. SR PER CM. PT DENIED ANY DISCOMFORT. NEEDS MET; WILL CONTINUE TO MONITOR.
[2019-02-19 07:38] VITALS: BP 153/90
--- NOTE | 2019-02-19 08:34 | NUR ---
AM MEDS GIVEN AT THIS TIME. ALSO GAVE PHENERGAN FOR NAUSEA. PT A/O X4, RESP EVEN AND NONLABORED ON 3L NC. MONITOR SHOWING SR WITH RATE OF 70. LT AV FISTULA WITH BRUIE AND THRILL NOTED. RT WRIST AND RT AC IV SL. PT DENIES ANY OTHER NEEDS AT THIS TIME. CALL LIGHT IN REACH, NAD NOTED, WILL CONTINUE TO MONITOR.
--- NOTE | 2019-02-19 09:29 | CN ---
PATIENT NAME:TANISHA FLOOD MEDICAL RECORD: [id number] : 89 LOCATION:D. D.2119 ADMIT DATE: 02/16/19 ACCOUNT: [id number] CONSULTING PHYSICIAN: MARAL FRANCIS MD REFERRING PHYSICIAN: CHERYL BURKS MD DATE OF CONSULTATION: 02/18/2019 DIAGNOSES: 1. Congestive heart failure, chronic systolic dysfunction. 2. Cardiomyopathy. 3. Hypertension. 4. Anemia. 5. End-stage renal failure, dialysis. 6. Pleural effusions status post thoracentesis. 7. Shortness of breath, dyspnea on exertion. HISTORY OF PRESENT ILLNESS: This is a gentleman with a known cardiomyopathy, ejection fraction 25%, secondary to hypertension, hypertensive heart disease, who presents with shortness of breath, dyspnea on exertion, found to have pleural effusion status post thoracentesis, continues to be short of breath. He has had dialysis and had fluid drawn off from dialysis. We placed him on dobutamine. He is currently hypertensive with systolic blood pressures in the 180s, heart rates in the 70s. He is anemic with a hemoglobin of 8.7. He is having no chest pain, no chest discomfort. EKG is with no ST-T abnormalities. He has had a workup for the cardiomyopathy in the past. He has a nonischemic cardiomyopathy. PHYSICAL EXAMINATION: CONSTITUTIONAL/GENERAL APPEARANCE: Well nourished, well developed, appears stated age. EYES: Lids and conjunctivae noninjected. No discharge. No pallor. ENT: Lips within normal limit. No cyanosis. No pallor. NECK: Carotid arteries, bilateral normal upstroke. No bruits. No thrills. No jugular venous pressure or distention. CERVICAL LYMPH NODES: Nontender. Nonenlarged. THYROID: Not enlarged. No nodules. CARDIOVASCULAR: Precordial exam, nondisplaced. No heaves or pericardial thrills. Rate and rhythm, regular. Heart sounds, normal S1, normal S2. No S3, no gallop, no rub. Systolic murmur, not heard. Diastolic murmur, not heard. RESPIRATORY: Respiratory effort, unlabored. Normal curvature. No thoracic deformity. No chest wall tenderness. Percussion, resonant. Auscultation, clear. No wheezes, no rales, no rhonchi. ABDOMEN: Soft, nondistended, nontender. No abdominal pain, no vomiting and normal appetite. MUSCULOSKELETAL: No joint tenderness, normal gait, normal tone. SKIN: Warm and dry. OVERALL IMPRESSION: Nonischemic cardiomyopathy, congestive heart failure from chronic systolic dysfunction. At this time, we will discontinue the dobutamine as he has been on greater than 24 hours fluid. We will have to come off with dialysis. He has undergone thoracentesis and had improvement with that. At this time, no other cardiac workup or treatment is necessary. TRANSINT:[id number] Voice Confirmation ID: [id number] DOCUMENT ID: [id number] CONSULT REPORT [id number] TANISHA FLOOD, MARAL OGDEN at 0929 CC: [id number] DICTATION DATE: 02/18/19 111 ACCOUNTING TECHNICIAN: 02/18/19 1153 ADM IN [facility] [address] [id number]
[2019-02-19 11:24] VITALS: BP 161/97
--- NOTE | 2019-02-19 12:00 | NUR ---
PT TO DIALYSIS VIA WHEELCHAIR. NAD NOTED,
--- NOTE | 2019-02-19 12:59 | NUR ---
4MG OF ZOFRAN GIVEN AT THIS TIME FOR NAUSEA. PT STILL IN DIALYSIS DENIES ANY OTHER NEEDS AT THIS TIME.
--- NOTE | 2019-02-19 16:44 | NUR ---
PT BACK TO ROOM FROM DIALYSIS.
--- NOTE | 2019-02-19 19:58 | NUR ---
RECEIVED UP IN BED WITH EYES CLOSED. AROUSES WITH VERBAL STIMULI. ORIENTED X4. GAURD AT BEDSIDE AND HANDCUFF TO RIGHT ANKLE. 02@ 3 LITERS PER N/C. IV TO RIGHT FA X2 SL.. TELEMETRY IN PLACE. DENIES ANY NEEDS.
[2019-02-19 20:35] VITALS: BP 144/83
[2019-02-20 00:49] VITALS: BP 145/81
[2019-02-20 05:38] VITALS: BP 144/78
--- NOTE | 2019-02-20 08:17 | NUR ---
AM MEDS GIVEN AT THIS TIME. PT IN BED, EATING BREAKFAST, STILL C/O CHEST PAIN, STATES THAT "THAT IT FEELS LIKE TWO BONES RUBBING TOGETHER AND IT REALLY HURTS. PT DENIES ANY OTHER NEEDS AT THIS TIME. CALL LIGHT IN REACH, WEB SIZER AT BEDSIDE, NAD NOTED, WILL CONTINUE TO MONITOR.
[2019-02-20 09:04] VITALS: BP 165/94
[2019-02-20 12:25] VITALS: BP 132/75
[2019-02-20] MEDS ORDERED: HYDRALAZINE HCL50 MG PO (13:50)
[2019-02-20] MEDS ORDERED: LISINOPRIL40 MG PO (13:50)
--- NOTE | 2019-02-20 14:09 | NUR ---
I TALKED TO DR YORK AND HE DOES NOT NEED TO ADD ANYTHING TO DISCHARGE MEDS.
--- NOTE | 2019-02-20 14:40 | NUR ---
REPORT CALLED TO JUDI WALL WHO WILL BE TAKING CARE OF PT.
--- NOTE | 2019-02-20 14:50 | NUR ---
Nutrition Follow-up: Pt eating well. Noted plans to d/c. Diet: Renal PO intake: 75-100% Labs reviewed Meds reviewed -Continue current diet as tolerated. -RD following.
--- NOTE | 2019-02-20 15:34 | NUR ---
PROVIDED VERBAL AND WRITTEN DISCHARGE TEACHING TO PT WHO VERBALIZED UNDERSTANDING REGARDING TEACHING, ALSO GAVE TYLENOL FOR PAIN LEVEL OF 8/10. RT WRIST AND RT AC IV D/C WITH CATHETER TIP INTACT. HEART MONITOR REMOVED AND TAKEN TO BLOOM CONVEYOR OPERATOR. 1509- CALLED [facility] AND SPOKE WITH JOSE CRUZ WHO INFORMED THIS NURSE THAT IT WOULD BE ABOUT AN HOUR AND A HALF BEFORE THEY COULD PICK PT UP..
[2019-02-20 16:17] VITALS: BP 142/70
--- NOTE | 2019-02-20 16:50 | MORECARE ---
CASE MANAGEMENT DISCHARGE SUMMARY PATIENT: TANISHA FLOOD UNIT: [id number] ADM DATE: 02/16/19 AGE: 28 : 90 SEX: M ROOM/BED: D.2119 AUTHOR: SAE MAYER PHYSICIAN: REFERRING PHYSICIAN: CHERYL BURKS MD DATE OF SERVICE: 02/20/19 Discharge Plan Patient Name: TANISHA FLOOD Facility: [facility]:[place] : 1990 Planned Disposition: Other Type of Facility Anticipated Discharge Date: 02/20/19 Discharge Date: Expected LOS: 4 Initial Reviewer: [email or web address] Initial Review Date: 02/20/2019 Generated: 02/20/19 5:50 pm Patient Name: TANISHA FLOOD Page [id number] at 1650 All edits/amendments must be made on the electronic document DICTATION DATE: 02/20/191649 STAMPING MACHINE OPERATOR: ROSA ELENA 02/20/191649 RPT#: [id number] DC DATE: STATUS: ADM IN [facility] [address] [place] [address] END OF REPORT
--- NOTE | 2019-02-20 16:58 | MORECARE ---
CASE MANAGEMENT DISCHARGE SUMMARY PATIENT: TANISHA FLOOD UNIT: [id number] ADM DATE: 02/16/19 AGE: 28 : 90 SEX: M ROOM/BED: D.6695 AUTHOR: MORENO,DOC PHYSICIAN: REFERRING PHYSICIAN: CHERYL BURKS MD DATE OF SERVICE: 02/20/19 Discharge Plan Patient Name: TANISHA FLOOD Facility: [facility]:[place] : 1990 Planned Disposition: Other Type of Facility Anticipated Discharge Date: 02/20/19 Discharge Date: Expected LOS: 4 Initial Reviewer: [email or web address] Initial Review Date: 02/20/2019 Generated: 02/20/19 5:58 pm Comments DCP- Discharge Planning Updated by [email or web address]: Jefry Duncan on 02/20/19 3:[address] Patient Name: TANISHA FLOOD Admission Status: ER Accout number: [id number] Admission Date: 02-16-2019 : 1990 Admission Diagnosis: Attending: CHERYL BURKS Current LOS: 4 Anticipated DC Date: 02-20-2019 Planned Disposition: Other Type of Facility Primary Insurance: MEDICAID ASSISTED PENDING PLANNED EXTERNAL PROVIDER: [facility] Discharge Planning Comments: CM MET [facility] PT AND MACHINIST MATE IN ROOM TO DISCUSS DISCHARGE PLANNING AND NEEDDS. PT LIVES AT THE ASSISTED UNIT IN [place]. PT WEARS OXYGEN AT NIGHT PROVIDED BY ASSISTED. PT HAS CPAP AT HOME, BUT NOT AT THE ASSISTED. PT RECEIVES DIALYSIS IN ASSISTED ON MWF SCHEDULE. PT'S GUARD WILL ARRANGE TRANSPORT HOME TODAY. PT HAS NO IDENTIFIED DISCHARGE NEEDS. [employer]: Jefry Duncan DCPIA - Discharge Planning Initial Assessment Updated by [email or web address]: Jefry Duncan on 02/20/19 4:51 pm * Is the patient Alert and Oriented? Yes * How many steps to enter\exit or inside your home? NONE * PCP [facility] * Pharmacy [facility] * Preadmission Environment Other * Other Environment [facility] * Facility Name [facility] * ADLs Partial Dependent * Partial ADLs (Assistance needed) Transfers * Equipment Oxygen Wheelchair * Other Equipment USES OXYGEN AT NIGHT AT ASSISTED; HAS HOME CPAP BUT NOT IN ASSISTED * List name and contact numbers for known caregivers / representatives who currently or will assist patient after discharge: [facility], * Verbal permission to speak to the caregivers and representatives has been obtained from the patient. N/A * Community resources currently utilized Other * Please name any agencies selected above. HEMODIAYSIS, MWF, PROVIDED BY [facility] * Additional services required to return to the preadmission environment? No * Can the patient safely return to the preadmission environment? Yes * Has this patient been hospitalized within the prior 30 days at any hospital? Yes Last DP export: 02/20/19 3:50 Patient Name: TANISHA FLOOD Page [phone] at 1658 All edits/amendments must be made on the electronic document DICTATION DATE: 02/20/191657 SMEARER: ROSA ELENA 02/20/191657 RPT#: [id number] DC DATE: STATUS: ADM IN [facility] [address] [place] [address] END OF REPORT
--- NOTE | 2019-02-20 18:13 | NUR ---
[facility] HERE, WAITING ON [facility] TO COME BACK.
--- NOTE | 2019-02-20 18:23 | NUR ---
[facility] HERE TO PICK PT UP, PT LEFT UNIT VIA STRETCHER, ACCOMPANIED BY GUARDS. NAD NOTED.
== END 2019-02-20 18:24 | DRG 291 ==
LOC: D.ER 10:55 → D.M2 12:16 → D.ICU 12:16 → D.M2 02-17 14:43
PROVIDERS: Family Medicine; Internal Medicine Pulmonary Disease; Radiology Diagnostic Radiology; ADMIT Internal Medicine Nephrology; ATTEND Internal Medicine Nephrology
PROC: 5A1D70Z Performance of Urinary Filtration, Intermittent, Less than 6 Hours Per Day (ICD-10-PCS; 2019-02-16)
PROC: 0W993ZZ Drainage of Right Pleural Cavity, Percutaneous Approach (ICD-10-PCS; principal; 2019-02-16 15:11)
DX: I13.2 Hypertensive heart and chronic kidney disease with heart failure and with stage 5 chronic kidney disease, or end stage renal disease (principal); N18.6 End stage renal disease; I50.23 Acute on chronic systolic (congestive) heart failure; J96.01 Acute respiratory failure with hypoxia; J18.9 Pneumonia, unspecified organism; F17.213 Nicotine dependence, cigarettes, with withdrawal; J98.11 Atelectasis; R04.2 Hemoptysis; Z99.2 Dependence on renal dialysis; E87.5 Hyperkalemia; D63.1 Anemia in chronic kidney disease; K81.9 Cholecystitis, unspecified; F31.9 Bipolar disorder, unspecified; F41.8 Other specified anxiety disorders; G35 Multiple sclerosis; E11.22 Type 2 diabetes mellitus with diabetic chronic kidney disease; I42.9 Cardiomyopathy, unspecified; I08.3 Combined rheumatic disorders of mitral, aortic and tricuspid valves; D50.9 Iron deficiency anemia, unspecified; D69.6 Thrombocytopenia, unspecified

== ENCOUNTER 2019-03-14 07:54 | Inpatient (IN) | payer MEDICAID ==
[~2019-03-14] VITALS: Ht 180.3 cm; Wt 53.7 kg
[~2019-03-14 07:54] MED LIST changes: +ALDACTONE50 MG PO; +APAP325 MG PO; +COREG25 MG PO; +DILTIAZEM 24HR360 M4 PO; +FOLIC ACID1 MG PO; +HYDRALAZINE HCL50 MG PO; +LISINOPRIL40 MG PO
--- NOTE | 2019-03-14 08:40 | NUR ---
ROOM 2134 ASSIGNED TO PATIENT AT 0827, ATTEMPTED TO CALL REPORT AT 0833, NURSE NOT AVAILABLE. WILL ATTEMPT TO CALL REPORT AGAIN SHORTLY.
[2019-03-14 08:42] LABS: APTT 34.7 SECONDS (22.8-39.4); INR 1.17 (0.85-1.17); PROTIME 14.8 SECONDS (11.6-15.0)
[2019-03-14 08:45] LABS: BASOPHILS 0.4 % (0-2); EOSINOPHILS 3.6 % (0-7); HEMATOCRIT 26.1 % (42.0-54.0); HEMOGLOBIN 8.1 g/dL (13.5-17.5); IMMATURE GRANULOCYTES 0.2 % (0-5); LYMPHOCYTES 10.9 % (15-50); MCH 29.6 pg (26.0-34.0); MCV 95.3 fL (80.0-100.0); MEAN PLATELET VOLUME 9.3 fL (7.4-10.4); MONOCYTES 9.8 % (2-11); NEUTROPHILS 75.1 % (40-80); RBC 2.74 10x6/uL (4.20-6.10); RDW 14.8 % (11.5-14.5); WBC 8.4 10x3/uL (4.8-10.8)
[2019-03-14 08:46] LABS: ANION GAP 16.3 mmol/L (8-16); CALCIUM 9.1 mg/dL (8.5-10.1); CARBON DIOXIDE 23.4 mmol/L (21.0-32.0); CREATININE - SERUM 8.8 mg/dL (0.6-1.3); POTASSIUM - SERUM 5.7 mmol/L (3.5-5.1)
--- NOTE | 2019-03-14 08:48 | NUR ---
PT SITTING IN HIGH POWELL'S, RESPIRATIONS EVEN AND UNLABORED. CALL LIGHT IN REACH, SIDE RAILS RAISED X2.
[2019-03-14 08:54] LABS: ALBUMIN 3.3 g/dL (3.4-5.0); BILIRUBIN - TOTAL 0.42 mg/dL (0.2-1.3); PROTEIN - SERUM 6.7 g/dL (6.4-8.2)
--- NOTE | 2019-03-14 09:09 | NUR ---
RECEIVED PT TO ROOM 2134 VIA STRETCHER, PT ALBE TO AMBULATE FROM STRETCHER TO BED WITH NO TROUBLE. ORIENTED PT TO ROOM AND CALL ZANDER IRBY AT BEDSIDE, WILL ASSESS PT AND START PLAN OF CARE.
[2019-03-14 09:16] LABS: PLATELET COUNT 174 10x3/uL (130-400)
[2019-03-14 09:36] VITALS: BP 140/79
[2019-03-14 09:59] VITALS: BP 140/79; BMI 18.1
--- NOTE | 2019-03-14 11:02 | NUR ---
PT TO IR, VIA BED.
--- NOTE | 2019-03-14 12:00 | NUR ---
RECEIVED PT BACK TO ROOM, DRESSING TO TO RT FLANK CDI. VITAL SIGNS STABLE. PT ASKING FOR SOMETHING FOR PAIN HAS NOTHING ORDERED, WILL CALL PRIMARY TO GET ORDER FOR PAIN MEDICATION.
--- NOTE | 2019-03-14 13:12 | NUR ---
PT TO DIALYSIS.
--- NOTE | 2019-03-14 13:36 | NUR ---
PT I DIALYSIS UNABLE TO D FREQUENT VITALS
[2019-03-14 14:47] VITALS: BP 150/85
--- NOTE | 2019-03-14 17:34 | NUR ---
PT BACK TO ROOM FROM DIALYSIS.
--- NOTE | 2019-03-14 19:00 | NUR ---
EVENING ROUNDS COMPLETED. PT ALERT AND ORIENTED. NO S/S OF DISTRESS. PT C/O PAIN AT THIS TIME. AWAITING OUTGOING NURSE TO RESTART MEDS. MORPHINE WILL BE RESTARTED WHEN DUE. SECURITY AT BEDSIDE. PT L.FA RESERVE. DENIES ANY FURTHER NEEDS AT THIS TIME. WILL CPOC. CL WITHIN REACH.
[2019-03-15 06:44] LABS: BASOPHILS 0.3 % (0-2); HEMATOCRIT 30.5 % (42.0-54.0); HEMOGLOBIN 9.6 g/dL (13.5-17.5); IMMATURE GRANULOCYTES 0.4 % (0-5); LYMPHOCYTES 12.3 % (15-50); MCH 29.4 pg (26.0-34.0); MCHC 31.5 g/dL (31.0-37.0); MEAN PLATELET VOLUME 9.5 fL (7.4-10.4); MONOCYTES 12.2 % (2-11); NEUTROPHILS 66.8 % (40-80); PLATELET COUNT 173 10x3/uL (130-400); RBC 3.27 10x6/uL (4.20-6.10); RDW 14.8 % (11.5-14.5); WBC 8.9 10x3/uL (4.8-10.8)
[2019-03-15 07:09] LABS: ALBUMIN 3.1 g/dL (3.4-5.0); BILIRUBIN - TOTAL 0.52 mg/dL (0.2-1.3); CALCIUM 8.9 mg/dL (8.5-10.1); CARBON DIOXIDE 25.2 mmol/L (21.0-32.0); CREATININE - SERUM 7.3 mg/dL (0.6-1.3); POTASSIUM - SERUM 5.2 mmol/L (3.5-5.1); PROTEIN - SERUM 6.7 g/dL (6.4-8.2)
--- NOTE | 2019-03-15 07:31 | NUR ---
PT RESTING. RR EVEN AND UNLABORED. DENIES NEEDS OR PAIN AT THIS TIME. GUARD AT BEDSIDE. BED IN LOWEST POSITION. CALL LIGHT WITHIN REACH. WILL C ONTINUE TO MONITOR.
[2019-03-15 07:50] LABS: MCV 93.3 fL (80.0-100.0)
[2019-03-15 08:00] VITALS: BP 190/125
[2019-03-15 12:00] VITALS: BP 188/115
[2019-03-15 14:06] VITALS: BMI 18.1
--- NOTE | 2019-03-15 17:23 | NUR ---
I have reviewed this patient and I concur with the Shift Assessment completed by the Licensed Practical Nurse today this shift.
[2019-03-15 17:49] VITALS: BP 152/87
--- NOTE | 2019-03-15 20:00 | NUR ---
EVENING ROUNDS COMPLETED. PT AAOX4 VSS, WITH BP OF 177/112. PT NOTIFIED ABOUT PROCEDURE IN THE AM, AND NPO STATUS. CONSENT FOR PROCEDURE SIGNED. SECURITY AT BEDSIDE. L.ARM FISTULA +BRUIT & THRILL. WILL CPOC. CL WITHIN REACH.
[2019-03-15 20:30] VITALS: BP 138/86
[2019-03-16] VITALS (9 sets, daily range): BP systolic 131–183; BP diastolic 73–108
--- NOTE | 2019-03-16 11:30 | NUR ---
PT HAS ALREADY HAD A HIBACLENS. CONSENTS AND EKG ON CHART.
--- NOTE | 2019-03-16 16:02 | NUR ---
I have reviewed this patient and I concur with the Shift Assessment completed by the Licensed Practical Nurse today this shift.
[2019-03-16 16:36] LABS: BASOPHILS 0.4 % (0-2); EOSINOPHILS 12.2 % (0-7); HEMATOCRIT 28.5 % (42.0-54.0); HEMOGLOBIN 9.2 g/dL (13.5-17.5); IMMATURE GRANULOCYTES 0.2 % (0-5); LYMPHOCYTES 12.1 % (15-50); MCH 30.1 pg (26.0-34.0); MCHC 32.3 g/dL (31.0-37.0); MCV 93.1 fL (80.0-100.0); MEAN PLATELET VOLUME 9.5 fL (7.4-10.4); NEUTROPHILS 67.1 % (40-80); PLATELET COUNT 170 10x3/uL (130-400); RBC 3.06 10x6/uL (4.20-6.10); RDW 14.8 % (11.5-14.5); WBC 9.6 10x3/uL (4.8-10.8)
[2019-03-16 16:54] LABS: ANION GAP 22.9 mmol/L (8-16); CALCIUM 9.2 mg/dL (8.5-10.1); CARBON DIOXIDE 21.3 mmol/L (21.0-32.0)
[2019-03-16 17:11] LABS: CREATININE - SERUM 10.9 mg/dL (0.6-1.3)
[2019-03-16 17:14] LABS: POTASSIUM - SERUM 6.2 mmol/L (3.5-5.1)
--- NOTE | 2019-03-16 17:23 | NUR ---
PT'S POTASSIUM IS 6.2. CALLED AND SPOKE WITH DR. RAGLAND AND ASKED IF HE WAS STILL GOING TO TAKE PT WITH A POTASSIUM OF 6.2 . I VERBALIZED UNDERSTANDING.
--- NOTE | 2019-03-16 17:27 | NUR ---
SPOKE WITH ARYA FROM DIALYSIS AND STATED TO HER THAT I'M WAITING TO HERE IF PT WILL GO TO SX STILL SINCE HIS POTASSIUM IS 6.2. I STATED HER PT IS SUPPOSSED TO HAVE HD AFTER SX BUT I WON'T KNOW UNTIL I GET A CALL BACK. SHE VERBALIZED UNDERSTANDING AND STATES SHE WILL LET SAHIL WALL KNOW.
--- NOTE | 2019-03-16 17:42 | NUR ---
PT TAKEN TO SX VIA BED. CALLED AND SPOKE WITH SAHIL WALL AND ABIMAEL AND STATED THIS TO HER AND SHE VERBALIZED UNDERSTANDING.
--- NOTE | 2019-03-16 18:00 | NUR ---
SYLVIA FROM DIALYSIS CALLED AND STATES SHE IS GOING TO STAY HERE AND WAIT TILL PT GETS OUT OF SX ADN WILL DO PT'S DIALYSIS. SHE STATES TO CALL 1420 WHEN HE GETS BACK AND TO PASS THIS ON TO SEPTIC TANK SETTER. I VERBALIZED UNDERSTANDING.
--- NOTE | 2019-03-16 19:04 | NUR ---
CALLED REPORT TO LUCIANO WALL IN ICU. WENT INTO PT'S ROOM TO TELL SEAM PRESS OPERATOR PT IS GOING TO ICU AND NO ONE IS IN PT'S ROOM AT THIS TIME. TOLD MED 2 STAFF TO KEEP A LOOK OUT FOR GUARD TO TELL THEM PT WILL NOW BE IN ICU. THEY VEBRALIZED UNDERSTANDING.
--- NOTE | 2019-03-16 20:30 | NUR ---
PT ON UNIT ACCOMPANIED BY OR STAFF, SINUS RANJANA NOTED - BEDSIDE REPORT RECEIVED LUNG SOUNDS DIMINISHED SHORT SHALLOW BREATHS. SPO2 95% PATIENT AROUSES TO SPEECH, DRIFTS OFF EASILY. VSS CPOC
--- NOTE | 2019-03-16 20:40 | NUR ---
HS MEDS HELD PENDING DIALYSIS
--- NOTE | 2019-03-16 20:43 | NUR ---
DIALYSIS NURSE CONTACTED AT THIS TIME
--- NOTE | 2019-03-16 21:15 | NUR ---
DR ALBERT CALLED FOR PATIENT FOLLOW UP - REPORT GIVEN, SPOKE WITH DR ALBERT ABOUT PAIN LEVELS, NO NEW ORDERS AT THIS TIME
[2019-03-16 21:18] LABS: BASOPHILS 0.4 % (0-2); EOSINOPHILS 11.1 % (0-7); HEMATOCRIT 29.5 % (42.0-54.0); HEMOGLOBIN 9.5 g/dL (13.5-17.5); IMMATURE GRANULOCYTES 0.2 % (0-5); LYMPHOCYTES 7.8 % (15-50); MCHC 32.2 g/dL (31.0-37.0); MCV 93.1 fL (80.0-100.0); MEAN PLATELET VOLUME 9.6 fL (7.4-10.4); MONOCYTES 6.5 % (2-11); PLATELET COUNT 194 10x3/uL (130-400); RBC 3.17 10x6/uL (4.20-6.10); RDW 14.7 % (11.5-14.5); WBC 9.8 10x3/uL (4.8-10.8)
--- NOTE | 2019-03-16 21:30 | NUR ---
PRN PAIN MEDICATION ADMINISTERED AT THIS TIME FOR PT CO OF PAIN, SEE EMAR FOR ADMINISTRATION
--- NOTE | 2019-03-16 22:09 | NUR ---
1 UNIT PRBC PICKED UP FROM LAB, BEDSIDE CHECK OFF WITH DIALYSIS NURSE, DIALYSIS NURSE WILL INITIATE AT THIS TIME. VSS CPOC
--- NOTE | 2019-03-16 23:30 | NUR ---
REASSESSMENT COMPLETED SEE FLOWSHEET
[2019-03-17] VITALS (25 sets, daily range): BP systolic 153–208; BP diastolic 91–142
--- NOTE | 2019-03-17 00:49 | NUR ---
2100 MEDICATIONS ADMINISTERED AT THIS TIME, HIGH BP NOTED DURING DIALYSIS, PT C/O PAIN, UNTOUCHED BY PAIN MEDICATIONS, ABDOMEN FIRM AND DISTENDED. VSS CPOC
--- NOTE | 2019-03-17 02:37 | NUR ---
PAGED RENAL DOCTOR CYLINDER STEAMER REGARDING CONTINUED HYPERTENSION DESPITE RECEIVING BP MEDICATIONS
--- NOTE | 2019-03-17 02:58 | NUR ---
PAGED RENAL DR WIND SITE MANAGER AT THIS TIME FOR PT RHYTHM CHANGES
--- NOTE | 2019-03-17 06:11 | NUR ---
PATIENT REQUESTED PRN PAIN MEDICATION SEE EMAR FOR ADMINISTRATION
--- NOTE | 2019-03-17 07:00 | NUR ---
BEDISDE REPORT RECEIVED. SHIFT ASSESSMENT COMPLETED PER FLOWSHEET, SEE FLOWSHEET FOR INFORMATION. PT C/O OF EXTREME PAIN IN ABDOMIN. NO PAIN MEDICATIONS GIVEN PER EMAR, PT DENIED HOT/COOL COMPRESS AND RELAXATION TECHNIQUES. PT STARTED ON CARDIZEM DRIP. WILL CONT TO MONITOR.
--- NOTE | 2019-03-17 09:00 | NUR ---
PT C/O OF ABDOMINAL PAIN "16/01, THE 2MG OF MORPHINE I'VE BEEN GETTING ARE NOT ENOUGH, I JUST NEED STRONGER MEDICINE. NOTHING ELSE HELPS." NO PAIN MEDICATIONS GIVEN PER EMAR. PT DENIES ANY NONPHARMACOLOGICAL THERAPIES. WILL CONT TO MONITOR.
--- NOTE | 2019-03-17 09:30 | NUR ---
SPOKE WITH ON THE PHONE, NO NEW ORDERS RECEIVED. PT GIVEN UPDATE. TERRY BURGER AT BEDSIDE. WILL CONT TO MONITOR.
[2019-03-17 10:23] LABS: BASOPHILS 0.2 % (0-2); EOSINOPHILS 3.1 % (0-7); HEMATOCRIT 35.2 % (42.0-54.0); HEMOGLOBIN 11.3 g/dL (13.5-17.5); IMMATURE GRANULOCYTES 0.3 % (0-5); LYMPHOCYTES 3.8 % (15-50); MCH 29.8 pg (26.0-34.0); MCHC 32.1 g/dL (31.0-37.0); MCV 92.9 fL (80.0-100.0); MEAN PLATELET VOLUME 9.7 fL (7.4-10.4); NEUTROPHILS 80.6 % (40-80); PLATELET COUNT 204 10x3/uL (130-400); RBC 3.79 10x6/uL (4.20-6.10); RDW 15.3 % (11.5-14.5)
[2019-03-17 10:24] LABS: WBC 13.1 10x3/uL (4.8-10.8)
[2019-03-17 10:32] LABS: ANION GAP 20.5 mmol/L (8-16); CALCIUM 9.4 mg/dL (8.5-10.1); CARBON DIOXIDE 22.9 mmol/L (21.0-32.0); CREATININE - SERUM 8.7 mg/dL (0.6-1.3); POTASSIUM - SERUM 5.4 mmol/L (3.5-5.1)
[2019-03-17 10:39] LABS: ALBUMIN 3.1 g/dL (3.4-5.0); BILIRUBIN - TOTAL 0.68 mg/dL (0.2-1.3); PROTEIN - SERUM 7.5 g/dL (6.4-8.2)
--- NOTE | 2019-03-17 10:54 | NUR ---
PAGED. DR. RAGLAND CALLED, NEW ORDERS RECEIVED. WILL CONT TO MONITOR.
--- NOTE | 2019-03-17 11:00 | NUR ---
REASSESSMENT COMPLETED PER FLOWSHEET, SEE FLOWSHEET FOR INFORMATION. WILL CONT TO MONITOR.
--- NOTE | 2019-03-17 12:00 | NUR ---
ANSWERED PT CALL LIGHT, PT C/O OF "OLD BED SORE HURTING", INFORM PT THAT SITTING IN ONE SPOT ON HIS BUTTOCK PUTS HIM AT A VERY HIGH RISK OF GETTING ANOTHER BED SORE. PT C/O OF HIS BUTTOCK HURTING AGAIN, WENT INTO GREAT DETAIL ABOUT WAYS TO PREVENT A PRESSURE ULCER. PT REFUSED TO TURN AND REFUSED TO LAY ON SIDE, "I DON'T WANT TO TURN OVER, I WANT TO STAY LIKE I AM. JUST GIVE ME NUMBING CREAM SO I DON'T FEEL IT" INFORMED PT DANGERS OF NUMBING CREAM ON BUTTOCK WHILE SITTING ON BUTTOCK FOR EXTENDED PERIODS OF TIME. WILL CONT TO MONITOR.
--- NOTE | 2019-03-17 12:20 | NUR ---
AT BEDSIDE. WILL CONT TO MONITOR.
--- NOTE | 2019-03-17 13:00 | NUR ---
PT STATES "THIS MACHINE IS REALLY HELPING MY PAIN, IT STILL HURTS BUT I FEEL BETTER." WILL CONT TO MONITOR.
--- NOTE | 2019-03-17 13:35 | NUR ---
AT BEDSIDE. WILL CONT TO MONITOR.
--- NOTE | 2019-03-17 14:24 | NUR ---
PAGED. WILL CONT TO MONITOR.
--- NOTE | 2019-03-17 15:00 | NUR ---
REASSESSMENT COMPLETED PER FLOWSHEET, SEE FLOWSHEET FOR INFORMATION. PT C/O OF PAIN IN BUTTOCK FROM "OLD BED SORE" AGAIN. WENT INTO GREAT DETAIL OF WAYS TO PREVENT A PRESSURE ULCER FROM FORMING. PT AGAIN REFUSED TO TURN OR LAY ON SIDE. APPLIED BUTT PASTE TO AREA PER PT REQUEST. SPOKE WITH , NEW ORDERS RECEIVED. WILL CONT TO MONITOR.
--- NOTE | 2019-03-17 15:20 | NUR ---
PAGED AGAIN. NO NEW ORDERS. WILL CONT TO MONITOR.
--- NOTE | 2019-03-17 17:00 | NUR ---
PT SITTING UP IN BED WATCHING TV. WILL CONT TO MONITOR.
--- NOTE | 2019-03-17 21:45 | NUR ---
PATIENT REQUESTING PRN MORPHINE FOR 10/10 PAIN OF THE ABDOMEN AT THIS TIME. MEDICATION AND PAIN MANAGEMENT EDUCATION PROVIDED, RECEIVED ICE PACK FOR ALTERNATIVE PAIN MANAGEMENT. RECEIVED HS MEDICATIONS AND CRANBERRY JUICE. TOLERATED WELL, NOTED HTN AT THIS TIME. CPOC
--- NOTE | 2019-03-17 23:46 | NUR ---
PATIENT REQUESTED "HYGIENE KIT" - RECEIVED A HAIR BRUSH, TOOTH BRUSH AND TOOTH PASTE. ASKING ABOUT BED SORE PREVENTION AND STATED HE HAS AN OLD BED SORE THAT IS OPEN, SKIN REASSESSMENT SHOWS NO OPEN SKIN OR PRESSURE ULCER ON THE SACRUM OR COCCYX AT THIS TIME. PATIENT EDUCATION PROVIDED REGARDING BED SORE PREVENTION. PATIENT STATES HE IS IN TOO MUCH PAIN TO MOVE. ENCOURAGED MOVEMENT AND EDUCATED PATIENT ON POSITIONAL COMFORT REGARDING ABDOMINAL AREA. PATIENT CONTINUES TO SIT STRAIGHT UP WITH SHOULDERS HUNCHED FORWARD PUTTING PRESSURE ON ABDOMINAL AREA DESPITE COMPLAINTS OF PAIN AND DISCOMFORT IN ABDOMINAL AREA. CPOC - REASSESSMENT COMPLETED SEE FLOWSHEET
[2019-03-18] VITALS (27 sets, daily range): BP systolic 115–181; BP diastolic 10–120
--- NOTE | 2019-03-18 00:35 | NUR ---
PT THROWING UP REQUESTED PRN GIN SEE EMAR FOR ADMINISTRATION
--- NOTE | 2019-03-18 01:28 | NUR ---
PT CO OF THORANCENTISIS SITE FEELING FUNNY, SOME EDEMA AND ERYTHEMA NOTED, DARK RED SCAB. INSTRUCTED PATIENT TO NOT TOUCH THE AREA, CLEANED AND COVERED AT THIS TIME. PT REQUESTING TO STAND UP SO HE WON'T GET A BED SORE. EXPLAINED TO PATIENT THAT HE IS ON BEDREST AND HAS DILUADID FINANCIAL SYSTEMS DIRECTOR. EDUCATED PATIENT ON TURNING HIMSELF IN ORDER TO PREVENT BEDSORES. PATIENT REFUSING TO TURN HIMSELF AT THIS TIME.
--- NOTE | 2019-03-18 02:34 | NUR ---
PATIENT RECEIVED APPLE JUICE PER REQUEST
--- NOTE | 2019-03-18 02:59 | NUR ---
REASSESSMENT COMPLETED SEE FLOWSHEET
[2019-03-18 03:23] LABS: BASOPHILS 0.1 % (0-2); EOSINOPHILS 0.7 % (0-7); HEMATOCRIT 34.8 % (42.0-54.0); HEMOGLOBIN 11.3 g/dL (13.5-17.5); IMMATURE GRANULOCYTES 0.2 % (0-5); LYMPHOCYTES 7.7 % (15-50); MCH 29.7 pg (26.0-34.0); MCHC 32.5 g/dL (31.0-37.0); MCV 91.3 fL (80.0-100.0); MEAN PLATELET VOLUME 9.5 fL (7.4-10.4); MONOCYTES 9.1 % (2-11); NEUTROPHILS 82.2 % (40-80); PLATELET COUNT 189 10x3/uL (130-400); RBC 3.81 10x6/uL (4.20-6.10); RDW 14.9 % (11.5-14.5); WBC 13.4 10x3/uL (4.8-10.8)
[2019-03-18 03:31] LABS: APTT 41.3 SECONDS (22.8-39.4); INR 1.35 (0.85-1.17); PROTIME 16.1 SECONDS (11.6-15.0)
[2019-03-18 03:49] LABS: ANION GAP 20.2 mmol/L (8-16); CALCIUM 9.9 mg/dL (8.5-10.1); CARBON DIOXIDE 24.9 mmol/L (21.0-32.0); CREATININE - SERUM 10.6 mg/dL (0.6-1.3); MAGNESIUM - SERUM 2.8 mg/dL (1.8-2.4)
[2019-03-18 03:52] LABS: PHOSPHOROUS 11.8 mg/dL (2.5-4.9); POTASSIUM - SERUM 6.1 mmol/L (3.5-5.1)
--- NOTE | 2019-03-18 07:00 | NUR ---
BEDSIDE REPORT RECEIVED. PT SITTING UP IN BED C/O OF ABDOMINAL PAIN, INFORMED PT TO PRESS RECEIVING TEAM MEMBER BUTTON WHEN IN PAIN, PT VERBALIZED UNDERSTANDING. NO ACUTE NEEDS NOTED AT THIS TIME. CALL LIGHT IN REACH. WILL CONT TO MONITOR.
--- NOTE | 2019-03-18 09:00 | NUR ---
TERRY BURGER AT BEDSIDE. NEW ORDERS RECEIVED. WILL CONT TO MONITOR.
--- NOTE | 2019-03-18 11:00 | NUR ---
PT RESTING IN BED WITH EYS CLOSED. PT DENIES ANY ACUTE NEEDS OR DISTRESS. REASSESSMENT COMPLETED PER FLOWSHEET, SEE FLOWSHEET FOR ADDITIONAL INFORMATION. WILL CONT TO MONITOR.
--- NOTE | 2019-03-18 13:00 | NUR ---
PT RESTING IN BED WITH EYES CLOSED. NO ACUTE NEEDS NOTED AT THIS TIME. WILL CONT TO MONITOR.
--- NOTE | 2019-03-18 14:06 | NUR ---
SPOKE WITH ABOUT URINE SAMLE, CANCELED ORDER SINCE PT IS ANURIC. WILL CONT TO MONITOR.
--- NOTE | 2019-03-18 14:13 | NUR ---
AT BEDSIDE. WILL CONT TO MONITOR.
--- NOTE | 2019-03-18 15:00 | NUR ---
REASSESSMENT COMPLETED PER FLOWSHEET, SEE FLOWSHEET FOR INFORMATION. PT STATED "MY BUTT HURTS, YOU NEED TO DO SOMETHING TO FIX IT. ITS NOT THE PRESSURE FROM SITTING HERE ITS THE FRICTION WHEN I MOVE." INFORMED PT OF RISKS OF PRESSURE ULCERS WHEN SITTING ON SAME SPOT FOR PROLONGED PERIODS. ASKED PT IF IT WOULD BE OKAY WITH HIM IF I PUT A DRAWSHEET UNDER HIM FOR LESS FRICTION AND A PILLOW BEHIND BACK FOR LESS PRESSURE ON BUTTOCK. PT STATED "I GUESS I'LL LET YOU DO THAT. BUT IT SEEMS LIKE THAT WILL HURT ME MORE. BUT I'LL TRY IT." PT REFUSED CHG BATH. WILL CONT TO MONITOR.
[2019-03-18 16:48] LABS: ANION GAP 21.9 mmol/L (8-16); CALCIUM 9.9 mg/dL (8.5-10.1); CARBON DIOXIDE 28.4 mmol/L (21.0-32.0); CREATININE - SERUM 11.6 mg/dL (0.6-1.3)
[2019-03-18 16:49] LABS: POTASSIUM - SERUM 6.3 mmol/L (3.5-5.1)
--- NOTE | 2019-03-18 17:00 | NUR ---
1700 MEDICATIONS GIVEN. NO ACUTE NEEDS OR DISTRESS. WILL CONT TO MONITOR.
--- NOTE | 2019-03-18 17:55 | NUR ---
PAGED. WILL CONT TO MONITOR.
--- NOTE | 2019-03-18 18:23 | NUR ---
SPOKE ZEB THOMAS. NEW ORDERS RECEIVED. WILL CONT TO MONITOR.
--- NOTE | 2019-03-18 19:00 | NUR ---
ASSESSMENT COMPLETED. PATIENT REFUSED CHG BATH OR LINEN CHANGE. C/O ABD PAIN AND STATES IT IS WORSE THAN OTHER DAYS. NOTED MD ADDRESSED ABD PAIN EARILY ON ROUNDS. BOWEL SOUNDS HYPOACTIVE. VOMITING BROWN EMESIS. REFUSED NEED FOR ANY INTERVENTIONS INCLUDING ENEMA. STATES HE HASN'T HAD BM SINCE TUESDAY. EDUCATED PATIENT ON PAIN MANAGEMENT, MEDICATIONS. IMPORTANCE OF BATHING AND REPOSITIONING.
--- NOTE | 2019-03-18 21:00 | NUR ---
PATIENT TOOK ALL 2100 MEDS WITHOUT DIFFICULTY. PRN ZOFRAN GIVEN ONCE. PT C/O HICCUPS IS CAUSING ABD PAIN.
--- NOTE | 2019-03-18 22:41 | NUR ---
ATTEMPTED TO CLEAN AND APPLY NEW DRESSINGS TO INCISIONS ON ABD PER PT REQUEST EARILY (PT STATED THAT THEY NEEDED TO BE CHANGED EARILY), AND HE REFUSED RIGHT NOW STATING HE IS HAVING HICCUP ATTACKS. PT STATED HE WOULD LET STAFF KNOW WHEN HE WAS READY
--- NOTE | 2019-03-18 23:00 | NUR ---
RE-ASSESSMENT COMPLETED. NO CHANGES SINCE LAST ASSESSMENT. PATIENT STATED HE WAS READY FOR DRESSING CHANGES ON HIS ABD. CHANGED, CLEANED, AND RECOVERED. NO S/S INFECTION.
[2019-03-19] VITALS (68 sets, daily range): BP systolic 98–174; BP diastolic 55–105
--- NOTE | 2019-03-19 01:00 | NUR ---
PT C/O OF ABD MORE DISTENDED. THIS NURSE DOESN'T SEE A DIFFERENCE FROM EARLIER. ABD IS DISTENDED, FIRM, TENDER. HEMATOMA NOTED AT UMBILICUS AND BRUISING NOTED. NO VOMITING AT THIS TIME. STILL HAS MERCHANDISE EXAMINER PUMP. PATIENT CONT TO C/O "HICCUP ATTACKS" AND STATES THAT MEANS SOMETHING IS WRONG. ATTEMPTED TO RE-EDUCATE PATIENT ON DIAGNOSIS AND POST SURGERY OF S/S OF COMPLICATIONS. PT VERBALIZED HE UNDERSTOOD
--- NOTE | 2019-03-19 03:00 | NUR ---
CARDIZEM STARTED BACK. HEART RATE UNCONTROLLED A-FIB. C/O PALPATIONS. PATIENT AGAIN REFUSES ANY NEED FOR ENEMA, HE STATES HE WANTS TO DOCTOR TO COME AND ASSESS HIM. EDUCATED PATIENT THAT HE WILL BE HERE LATER DURING HIS ROUNDS.
[2019-03-19 04:04] LABS: BASOPHILS 0.2 % (0-2); EOSINOPHILS 2.3 % (0-7); HEMATOCRIT 30.9 % (42.0-54.0); HEMOGLOBIN 10.2 g/dL (13.5-17.5); IMMATURE GRANULOCYTES 0.2 % (0-5); LYMPHOCYTES 5.4 % (15-50); MCH 29.7 pg (26.0-34.0); MCV 89.8 fL (80.0-100.0); MEAN PLATELET VOLUME 9.5 fL (7.4-10.4); MONOCYTES 13.8 % (2-11); NEUTROPHILS 78.1 % (40-80); PLATELET COUNT 211 10x3/uL (130-400); RBC 3.44 10x6/uL (4.20-6.10); RDW 14.6 % (11.5-14.5); WBC 12.7 10x3/uL (4.8-10.8)
[2019-03-19 04:29] LABS: ANION GAP 22.4 mmol/L (8-16); CALCIUM 9.5 mg/dL (8.5-10.1); CARBON DIOXIDE 28.8 mmol/L (21.0-32.0); CREATININE - SERUM 12.6 mg/dL (0.6-1.3); MAGNESIUM - SERUM 2.6 mg/dL (1.8-2.4)
[2019-03-19 04:36] LABS: PHOSPHOROUS 10.7 mg/dL (2.5-4.9); POTASSIUM - SERUM 5.2 mmol/L (3.5-5.1)
--- NOTE | 2019-03-19 05:00 | NUR ---
PATIENT COMPLAINTS THERE IS A SORE ON BUTTOCK. ASSESSED BUTTOCK AT THIS TIME AND INFORMED PATIENT THERE IS NOT A SORE. EDUCATED ON REPOSITIONING BUT PATIENT REFUSED
--- NOTE | 2019-03-19 08:34 | NUR ---
PT REFUSING ALL MEDICATION AT THIS TIME EXCEPT FOR KAYEXALATE.
--- NOTE | 2019-03-19 10:44 | NUR ---
NUTRITION F/U RENAL DIET BUT PT CURRENTLY NPO FOR PROCEDURE. WILL PROVIDE RENAL DIET WHEN RESUMED, MONITOR PO INTAKE. RD FOLLOWING
--- NOTE | 2019-03-19 10:57 | NUR ---
0700 pt recieved alert and oriented vss denies all needs, see shift assessment [address] martinez 1030 dialysis nurse in unit
--- NOTE | 2019-03-19 11:00 | NUR ---
PT RECEIVED FROM [facility] DAY SHIFT NURSE. REASSESSMENT COMPLETED. WILL CONTINUE TO MONITOR
--- NOTE | 2019-03-19 13:00 | NUR ---
PT RESTING IN BED. DR RAGLAND CALLED NO SURGERY TODAY. WILL CONTINUE TO MONITOR
--- NOTE | 2019-03-19 15:00 | NUR ---
PT RESTING IN BED. GUARD AT BEDSIDE. REASSESSMENT COMPLETED. WILL CONTINUE TO MONITOR
--- NOTE | 2019-03-19 17:00 | NUR ---
PT RESTING IN BED. MEAL TRAY DELIVERED TO PT. WILL CONTINUE TO MONITOR
--- NOTE | 2019-03-19 22:30 | NUR ---
OVERLAY MATTERESS PLACED ON BED PER MD ORDER. CALL LIGHT WITHIN REACH, BED IN LOW POSITION. GUARD AT BEDSIDE.
[2019-03-20] VITALS (48 sets, daily range): BP systolic 99–149; BP diastolic 6–97; Ht 180.3 cm; Wt 53.7 kg
--- NOTE | 2019-03-20 00:24 | NUR ---
PATIENT VOMITED APPROX 200ML OF STRINGY BROWN WATERY CONT NOTED AFTER DRINKING THE APPLE JUICE HE REQUESTED. PATIENT GIVEN ZOFRAN PER ORDER. PATIENT STATED HE WAS NAUSEATED PRIOR TO DRINKING THE APPLE JUICE. CALL LIGHT WITHIN REACH, BED IN LOW POSITION.
--- NOTE | 2019-03-20 02:30 | NUR ---
PATIENT STATES SENIOR GOVERNMENT PROGRAM ANALYST BUTTON IS NOT WORKING. TOOK SENIOR GOVERNMENT PROGRAM ANALYST BUTTON OUT OF REACH OF PATIENT AND TOLD HIM I WOULD BE BACK IN 5 AND AGAIN IN 10 MINS TO CHECK IT. PATIENT WAS SO GROGGY THAT HE WOULD DOZE OFF DURING CONVERSATION. UPON RETURNING LESS THAN 5 MINUTES THE SENIOR GOVERNMENT PROGRAM ANALYST BUTTON WAS LIT UP AND GUARD WAS AT BEDSIDE. SENIOR GOVERNMENT PROGRAM ANALYST BUTTON GIVEN BACK TO PATIENT.
[2019-03-20 04:49] LABS: BASOPHILS 0.3 % (0-2); EOSINOPHILS 2.4 % (0-7); HEMATOCRIT 34.7 % (42.0-54.0); HEMOGLOBIN 11.1 g/dL (13.5-17.5); IMMATURE GRANULOCYTES 0.3 % (0-5); LYMPHOCYTES 7.1 % (15-50); MCH 29.8 pg (26.0-34.0); MEAN PLATELET VOLUME 10.1 fL (7.4-10.4); MONOCYTES 12.7 % (2-11); NEUTROPHILS 77.2 % (40-80); PLATELET COUNT 253 10x3/uL (130-400); RBC 3.72 10x6/uL (4.20-6.10); RDW 14.4 % (11.5-14.5); WBC 13.9 10x3/uL (4.8-10.8)
[2019-03-20 04:58] LABS: MCV 93.3 fL (80.0-100.0)
[2019-03-20 05:06] LABS: ANION GAP 16.2 mmol/L (8-16); CALCIUM 10.1 mg/dL (8.5-10.1); CREATININE - SERUM 10.3 mg/dL (0.6-1.3)
[2019-03-20 05:08] LABS: POTASSIUM - SERUM 4.2 mmol/L (3.5-5.1)
--- NOTE | 2019-03-20 07:00 | NUR ---
PT REPORT RECEIVED FROM SUPERVISOR [employer] NURSE. NO VISIBLE SIGNS OF DISTRESS NOTED. GUARD AT BEDSIDE. SHIFT ASSESSMENT COMPLETED. WILL CONTINUE TO MONITOR
--- NOTE | 2019-03-20 07:40 | NUR ---
PAGED DR RAGLAND ABOUT SURGERY TODAY. AWAITING CALL BACK
--- NOTE | 2019-03-20 07:45 | NUR ---
DR RAGLAND CALLED SAID NO SURGERY TODAY. SURGERY IS PLANNED FOR TOMORROW. PT IS GOING TO HAVE SMALL BOWEL FOLLOW THROUGH DONE TODAY.
--- NOTE | 2019-03-20 07:50 | NUR ---
PT LEFT FOR SMALL BOWEL PROCEDURE. WILL CONTINUE TO MONITOR
--- NOTE | 2019-03-20 09:15 | NUR ---
SBS PERFORMED WITH GASTROGRAFIN, ORDERED BY DR. RAGLAND. 240 ML GASTROGRAFIN DRANK BY PATIENT.
--- NOTE | 2019-03-20 09:30 | NUR ---
PT BACK ON UNIT. HOOKED UP TO ICU MONITOR. WILL CONTINUE TO MONITOR
--- NOTE | 2019-03-20 10:12 | NUR ---
NUTRITION F/U PT TOLERATING RENAL DIET. EATING BREAKFAST AT THIS TIME. WILL CONTINUE TO MONITOR PT PROGRESS. PROVIDE DIET. RD FOLLOWING
--- NOTE | 2019-03-20 11:00 | NUR ---
PT RESTING IN BED. NO VISIBLE SIGNS OF DISTRESS NOTED. REASSESSMENT COMPLETED. WILL CONTINUE TO MONITOR
--- NOTE | 2019-03-20 13:00 | NUR ---
PT RESTING IN BED. GUARD AT BEDSIDE. NO VISIBLE SIGNS OF DISTRESS NOTED. PT SLEEPING BUT AWAKENS EASILY.
--- NOTE | 2019-03-20 13:45 | NUR ---
PT RESTING IN BED. HEART RATE DROPPED TO 50'S SO CARDIZEM DRIP STOPPED. NO VISIBLE SIGNS OF DISTRESS NOTED. PT ALERT AND ORIENTED. WILL CONTINUE TO MONITOR
--- NOTE | 2019-03-20 14:00 | NUR ---
RHYTHM CHANGE NOTED SO EKG OBTAINED. PT IN ATRIAL FLUTTER. CARDIOLOGY CONSULT ORDERED WITH DR FRANCIS.
--- NOTE | 2019-03-20 14:15 | MORECARE ---
CASE MANAGEMENT DISCHARGE SUMMARY PATIENT: TANISHA FLOOD UNIT: [id number] ADM DATE: 03/14/19 AGE: 28 : 90 SEX: M ROOM/BED: D.2311 AUTHOR: SAE MAYER PHYSICIAN: REFERRING PHYSICIAN: VAL ALBERT MD DATE OF SERVICE: 03/20/19 Discharge Plan Patient Name: TANISHA FLOOD [facility] : 1990 Planned Disposition: Court\Law Enforcement Anticipated Discharge Date: Discharge Date: Expected LOS: Initial Reviewer: [email or web address] Initial Review Date: 03/19/2019 Generated: 03/20/19 3:15 pm Patient Name: TANISHA FLOOD Page 19638 at 1415 All edits/amendments must be made on the electronic document DICTATION DATE: 03/20/19 141 APICULTURIST: ROSA ELENA 03/20/19 141 RPT#: [id number] DC DATE: STATUS: ADM IN [facility] [address] [place] [address] END OF REPORT
--- NOTE | 2019-03-20 14:25 | MORECARE ---
CASE MANAGEMENT DISCHARGE SUMMARY PATIENT: TANISHA FLOOD UNIT: [id number] ADM DATE: 03/14/19 AGE: 28 : 90 SEX: M ROOM/BED: D.2311 AUTHOR: SAE MAYER PHYSICIAN: REFERRING PHYSICIAN: VAL ALBERT MD DATE OF SERVICE: 03/20/19 Discharge Plan Patient Name: TANISHA FLOOD Facility: [facility]:[place] : 1990 Planned Disposition: Court\Law Enforcement Anticipated Discharge Date: Discharge Date: Expected LOS: Initial Reviewer: [email or web address] Initial Review Date: 03/19/2019 Generated: 03/20/19 3:24 pm Comments DCP- Discharge Planning Updated by [email or web address]: Catia Gomez on 03/20/19 1:[address] LATE ENTRY 03/19/19 Patient Name: TANISHA FLOOD Admission Status: ER Accout number: [id number] Admission Date: 03-14-2019 : 1990 Admission Diagnosis: Attending: VAL ALBERT Current LOS: 5 Anticipated DC Date: Planned Disposition: Court\Law Enforcement Primary Insurance: MEDICAID SNF PENDING Discharge Planning Comments: PATIENT WILL RETURN TO [place] [facility] UPON DISCHARGE. GUARD AT BEDSIDE. CM WILL CONTINUE TO FOLLOW AND ASSIST NEEDED WITH DISCHARGE PLANNING / NEEDS. Efficiency Miner Blasting: Catia Gomez DCPIA - Discharge Planning Initial Assessment Updated by [email or web address]: Catia Gomez on 03/20/19 2:16 pm * Is the patient Alert and Oriented? Yes * How many steps to enter\exit or inside your home? * PCP [facility] * Pharmacy [facility] * Preadmission Environment Other * Other Environment [facility] * Facility Name [facility] * ADLs Independent Last DP export: 03/20/19 1:15 Patient Name: TANISHA FLOOD Page [id number] at 1426 All edits/amendments must be made on the electronic document DICTATION DATE: 03/20/19 142 PROPERTY MAINTENANCE TECHNICIAN: ROSA ELENA 03/20/19 1424 RPT#: [id number] DC DATE: STATUS: ADM IN [facility] [address] [place] [address] END OF REPORT
--- NOTE | 2019-03-20 14:45 | NUR ---
HEART RATE NOW IN THE UPPER 40'S TO 50'S. NO DISTRESS NOTED. PT ALERT AND ORIENTED. PAGED DR FRANCIS.
--- NOTE | 2019-03-20 15:00 | NUR ---
PT RESTING IN BED. GUARD AT BEDSIDE. PT SLEEPING BUT AWAKENS EASILY. REASSESSMENT COMPLETED. NO VISIBLE SIGNS OF DISTRESS NOTED. WILL CONTINUE TO MONITOR. HR STILL VARIABLE 40'S-60'S
--- NOTE | 2019-03-20 15:45 | NUR ---
DR FRANCIS AT BEDSIDE. UPDATE GIVEN. NO NEW ORDERS. PT HR NOW UP TO 70'S. NO VISIBLE SIGNS OF DISTRESS NOTED. WILL CONTINUE TO MONITOR
--- NOTE | 2019-03-20 17:00 | NUR ---
PT UP TO BEDSIDE COMMODE HAVING BM. NO VISIBLE SIGNS OF DISTRESS NOTED. WILL CONITNUE TO MONITOR
[2019-03-21] VITALS (28 sets, daily range): BP systolic 86–163; BP diastolic 34–126
--- NOTE | 2019-03-21 04:15 | NUR ---
PATIENT UP TO BSC PASSED GAS ONLY. CHG BATH GIVEN. CVL DRESSING CHANGE DONE. LINENS CHANGED. CALL LIGHT WITHIN REACH, BED IN LOW POSITION.
[2019-03-21 04:41] LABS: BASOPHILS 0.3 % (0-2); EOSINOPHILS 5.1 % (0-7); HEMATOCRIT 31.6 % (42.0-54.0); HEMOGLOBIN 9.9 g/dL (13.5-17.5); IMMATURE GRANULOCYTES 0.6 % (0-5); MCH 29.6 pg (26.0-34.0); MCHC 31.3 g/dL (31.0-37.0); MCV 94.6 fL (80.0-100.0); MEAN PLATELET VOLUME 10.2 fL (7.4-10.4); MONOCYTES 15.6 % (2-11); NEUTROPHILS 69.4 % (40-80); PLATELET COUNT 242 10x3/uL (130-400); RBC 3.34 10x6/uL (4.20-6.10); RDW 14.1 % (11.5-14.5); WBC 12.5 10x3/uL (4.8-10.8)
--- NOTE | 2019-03-21 04:55 | NUR ---
RESTARTED CARDIZEM AT 5MG/HR DUE TO HR INCREASING TO 115.
[2019-03-21 05:00] LABS: ANION GAP 13.5 mmol/L (8-16); CALCIUM 8.8 mg/dL (8.5-10.1); CARBON DIOXIDE 34.2 mmol/L (21.0-32.0); CREATININE - SERUM 11.2 mg/dL (0.6-1.3); POTASSIUM - SERUM 4.7 mmol/L (3.5-5.1)
--- NOTE | 2019-03-21 07:30 | NUR ---
report recieved. patient alert and oriented no acute distress. guard at bedside. npo. necessary morning meds provided. selma donato. surgery planned today. will continue to monitor. see assessment. see adl's. call light within reach. bedside table within reach. bed low and locked. patient going between a flutter and normal sinus. strip printed and attached to chart.
--- NOTE | 2019-03-21 09:30 | NUR ---
called dr lyon regarding patient vs. patient not tolerating cardizam drip. titrating off. patient blood pressure 89/46 with hr of 62. patient in a flutter. dr lyon stated he was not concerned. no new orders given but to monitor.
--- NOTE | 2019-03-21 10:16 | NUR ---
DIALYSIS AT BEDSIDE.
--- NOTE | 2019-03-21 11:18 | NUR ---
DR FRANCIS AT BEDSIDE. UPDATE GIVEN.
--- NOTE | 2019-03-21 11:56 | NUR ---
DIALYSIS AT BEDSIDE. HR 136 AFTER DIGOXIN DOSE. WILL CONTINUE TO MONITOR
--- NOTE | 2019-03-21 11:57 | NUR ---
PATIENT IN AND OUT OF SINUS. OCCASIONAL BEATS OF A FLUTTER
--- NOTE | 2019-03-21 13:00 | NUR ---
SURGERY AT BEDSIDE. PREOP MEDS GIVEN.
--- NOTE | 2019-03-21 14:34 | NUR ---
DIALYSIS PULLED OFF 3L.
--- NOTE | 2019-03-21 16:27 | NUR ---
1550 - CARDIZEM GTT INFUSING AT 10 MG/H UPON ARRIVAL VIA PUMP
--- NOTE | 2019-03-21 16:51 | NUR ---
report recieved from [facility]
--- NOTE | 2019-03-21 17:10 | NUR ---
PATIENT BACK FROM SURGERY.
--- NOTE | 2019-03-21 17:30 | NUR ---
ICE CHIPS PROVIDED. PATIENT ALERT AND ORIENTED.
--- NOTE | 2019-03-21 18:00 | NUR ---
no signs of bleeding during this time. arm elevated on pillow.
--- NOTE | 2019-03-21 18:42 | NUR ---
PATIENT TRAY PROVIDED.
--- NOTE | 2019-03-21 19:30 | NUR ---
DR. RAGLAND IN TO SEE PATIENT, NO NEW ORDERS GIVEN.
--- NOTE | 2019-03-21 19:45 | NUR ---
PATIENT R HAND IS SWOLLEN HAS GOOD CAP REFILL AND RADIAL PULSE PALPABLE. WILL CONTINUE TO MONITOR.
[2019-03-22] VITALS (33 sets, daily range): BP systolic 96–174; BP diastolic 57–103
--- NOTE | 2019-03-22 01:30 | NUR ---
NO CHANGES IN PATIENT HAND FROM PREVIOUS ASSESSMENT.
[2019-03-22 05:23] LABS: BASOPHILS 0.2 % (0-2); EOSINOPHILS 0.2 % (0-7); HEMATOCRIT 31.7 % (42.0-54.0); HEMOGLOBIN 9.9 g/dL (13.5-17.5); MCH 29.6 pg (26.0-34.0); MCHC 31.2 g/dL (31.0-37.0); MCV 94.9 fL (80.0-100.0); MEAN PLATELET VOLUME 10.3 fL (7.4-10.4); MONOCYTES 9.4 % (2-11); NEUTROPHILS 82.2 % (40-80); RBC 3.34 10x6/uL (4.20-6.10); RDW 14.1 % (11.5-14.5); WBC 15.2 10x3/uL (4.8-10.8)
[2019-03-22 05:27] LABS: PLATELET COUNT 333 10x3/uL (130-400)
[2019-03-22 05:37] LABS: CALCIUM 9.6 mg/dL (8.5-10.1); CARBON DIOXIDE 30.7 mmol/L (21.0-32.0); CREATININE - SERUM 9.1 mg/dL (0.6-1.3)
[2019-03-22 05:38] LABS: POTASSIUM - SERUM 5.7 mmol/L (3.5-5.1)
--- NOTE | 2019-03-22 06:45 | NUR ---
PATIENTS HAND IS MORE SWOLLEN THAN PREVIOUSLY. RADIAL PULSE PRESENT AND CAP REFILL IS STILL THE SAME.
--- NOTE | 2019-03-22 07:30 | NUR ---
reprot recieved from jevon. patient is awake and alert. sitting up in bed. guard at bedside. cardizam drip going at 10. no signs of infiltration iv site during this time. no acute distress. hr 1 teens. bp elevated upon entrance of room of 170's. cardizam titrated up by me to 12.5. patient tolerating drip. bed low and locked. bedside table within reach. bedside commode within reach. ankle cuffed. l arm is a lot more swollen than yesterday. palp pulse and cap refill is present. patient states pain. will contact dr martinez. will continue to monitor
--- NOTE | 2019-03-22 08:20 | NUR ---
spoke with dr martinez regarding arm swelling since no orders were put in to release bandage at any given time. he stated to leave the bandage on. i did inform him that it was swollen a lot more than yesterday and that there were still a radial pulse and cap refill present. no new orders given during this time.
--- NOTE | 2019-03-22 11:26 | NUR ---
patient sleeping. off drip. patient tolerating. no acute distress. rrom air. saturation is 95%. will continue to monitor.
--- NOTE | 2019-03-22 13:43 | NUR ---
palpable radial pulse. extremity elevated. cap refill less than three seconds. all doctors aware of swelling.
--- NOTE | 2019-03-22 15:25 | CN ---
PATIENT NAME:TANISHA FLOOD MEDICAL RECORD: [id number] : [birth year] LOCATION:SHAW.2311 ADMIT DATE: 03/14/19 ACCOUNT: [id number] CONSULTING PHYSICIAN: MARAL FRANCIS MD REFERRING PHYSICIAN: VAL ALBERT MD DATE OF CONSULTATION: 03/20/2019 DIAGNOSES: 1. Atrial fibrillation. 2. Bradycardia. 3. Congestive heart failure, chronic systolic dysfunction. 4. Cardiomyopathy. 5. Hypertension. 6. Atrial fibrillation, chronic. 7. Pulmonary hypertension. HISTORY OF PRESENT ILLNESS: Mrs. Flood presents with abdominal issues and gallbladder issues and set for cholecystectomy tomorrow. He has chronic atrial fibrillation. He is incarcerated. He has longstanding hypertension, end-stage renal failure, on dialysis from hypertension. Today, he was on a diltiazem drip and he got his p.o. diltiazem as well after that resulted in atrial fib, atrial flutter with a bradycardic response in the 40s. His diltiazem drip has been turned off. His heart rate is now in the 50s. His systolic blood pressures in the 130s. He does not have any cardiac symptomatology. He has had an echo here since admission. His ejection fraction was 50% here. He did have pulmonary hypertension, pulmonary systolic pressure is in the 50s. He had mild mitral regurgitation, moderate tricuspid regurgitation, no other valvular heart disease. PHYSICAL EXAMINATION: CONSTITUTIONAL/GENERAL APPEARANCE: Well nourished, well developed, appears stated age. EYES: Lids and conjunctivae noninjected. No discharge. No pallor. ENT: Lips within normal limit. No cyanosis. No pallor. NECK: Carotid arteries, bilateral normal upstroke. No bruits. No thrills. No jugular venous pressure or distention. CERVICAL LYMPH NODES: Nontender. Nonenlarged. THYROID: Not enlarged. No nodules. CARDIOVASCULAR: Irregularly irregular, bradycardic with atrial fibrillation. RESPIRATORY: Respiratory effort, unlabored. Normal curvature. No thoracic deformity. No chest wall tenderness. Percussion, resonant. Auscultation, clear. No wheezes, no rales, no rhonchi. ABDOMEN: Soft, nondistended, nontender. No abdominal pain, no vomiting and normal appetite. MUSCULOSKELETAL: No joint tenderness, normal gait, normal tone. SKIN: Warm and dry. OVERALL IMPRESSION: Bradycardia from the atrial fibrillation secondary to IV as well as p.o. Cardizem being given at this time. The IV Cardizem was discontinued. Discontinued the p.o. Cardizem and his other medications as his heart rate and blood pressure are good and he is not having heart failure symptomatology at this time. TRANSINT:[id number] Voice Confirmation ID: [id number] DOCUMENT ID: [id number] CONSULT REPORT [id number] TANISHA FLOOD, MARAL OGDEN at 1525 CC: [id number] DICTATION DATE: 03/20/19 1602 PULMONARY SPECIALIST: 03/21/19 0018 ADM IN [facility] [address] [place] [address]
--- NOTE | 2019-03-22 15:30 | NUR ---
HR 46. HELD BP MEDS AT THIS TIME.
--- NOTE | 2019-03-22 15:44 | NUR ---
BP 120/66 HELD BP MEDS AT THIS TIME
--- NOTE | 2019-03-22 17:30 | NUR ---
PATIENT DENIED BATH DUE TO THE TRANSFER ORDER.
--- NOTE | 2019-03-22 18:32 | NUR ---
dr martinez at bedside. arm examined.
[2019-03-23 03:00] VITALS: BP 137/100
--- NOTE | 2019-03-23 07:35 | NUR ---
RECIEVED FROM ICU. ALERT AND ORIENTED. TELEMERTY SHOWS AFLUTTER 72. PT HAS A RIGHT CHEST VANDANA SPLIT. DRSG TO LEFT ARM DRY AND INTACK, HAND SWOLLEN. IV TO RIGHT FA PALMER NS AT 20. FIREARMS SPECIALIST PUMP WITH DILAUDID AT 0.2MG Q 10MINWITH A 4MG LOCK OUT. HE IS ON A 1ST STEP MATTRESS. UP AB YARITZA. GUARD AT BEDSIDE.
--- NOTE | 2019-03-23 08:15 | NUR ---
TO DIALYSIS PER BED
[2019-03-23 09:48] VITALS: BP 149/66
--- NOTE | 2019-03-23 12:59 | NUR ---
BACK FROM [facility]. HR RUNNING FROM 13 25 TO [address] FRANCIS NOTIFIED AND NO NEW ORDERS. WILL MONITOR
--- NOTE | 2019-03-23 13:36 | NUR ---
TRANSFER FROM ICU THIS AM. BACK FROM DIALYSIS. CALL LIGHT IN REACH. WILL CONT. PLAN OF CARE.
--- NOTE | 2019-03-23 14:36 | NUR ---
Nutrition follow-up: pt tx to floor from ICU Diet: Renal PO intake 75-100% of meals Labs reviewed +BM Wt: 118# ? wt; please reweigh dialysis today RDN following.
--- NOTE | 2019-03-23 15:43 | MORECARE ---
CASE MANAGEMENT DISCHARGE SUMMARY PATIENT: TANISHA FLOOD UNIT: [id number] ADM DATE: 03/14/19 AGE: 28 : [birth year] SEX: M ROOM/BED: D.5555 AUTHOR: MORENODOC PHYSICIAN: REFERRING PHYSICIAN: VAL ALBERT MD DATE OF SERVICE: 03/23/19 Discharge Plan Patient Name: TANISHA FLOOD Facility: [facility]:[place] : 1990 Planned Disposition: Court\Law Enforcement Anticipated Discharge Date: 03/24/19 Discharge Date: Expected LOS: 10 Initial Reviewer: [email or web address] Initial Review Date: 03/19/2019 Generated: 03/23/19 4:43 pm Comments DCP- Discharge Planning Updated by [email or web address]: Jefry Duncan on 03/23/19 2:[address] Patient Name: TANISHA FLOOD Encounter No: [id number] : 1990 Primary Insurance: MEDICAID ALF PENDING Anticipated DC Date: Planned Disposition: Court\Law Enforcement External Planned Provider: [facility], [facility] DCP follow-up note: CM RECEIVED DISCHARGE ORDERS, SPOKE TO RN CM HOUSE WHO HAS DISCUSSED NEED FOR DOCTOR TO DOCTOR CONVERSTATION FOR PT TO RETURN TO [facility]ICAL UN[facility]. TERRY COOPER IN FORMED RN CM HOUSE THAT DR. BALDERAS WOULD NOT DO THE PEER TO PEER AND DR. MAK AGREED TO DO THE CALL TOMORROW, 03-24-19. THE MAIN NUMBER TO [facility] IS [phone]. REYES Mota DCP- Discharge Planning Updated by [email or web address]: Catia Gomez on 03/20/19 1:[address] LATE ENTRY 03/19/19 Patient Name: TANISHA FLOOD Admission Status: ER Accout number: [id number] Admission Date: 03-14-2019 : 1990 Admission Diagnosis: Attending: VAL ALBERT Current LOS: 5 Anticipated DC Date: Planned Disposition: Court\Law Enforcement Primary Insurance: MEDICAID ALF PENDING Discharge Planning Comments: PATIENT WILL RETURN TO [place] [facility] UPON DISCHARGE. GUARD AT BEDSIDE. CM WILL CONTINUE TO FOLLOW AND ASSIST NEEDED WITH DISCHARGE PLANNING / NEEDS. Production Analyst: Catia Jason DCPIA - Discharge Planning Initial Assessment Updated by [id number]: Catia Gomez on 03/20/19 2:16 pm * Is the patient Alert and Oriented? Yes * How many steps to enter\exit or inside your home? * PCP [facility] * Pharmacy [facility] * Preadmission Environment Other * Other Environment [facility] * Facility Name [facility] [place] * ADLs Independent Last DP export: 03/20/19 1:25 Patient Name: TANISHA FLOOD Page 47430 at 1543 All edits/amendments must be made on the electronic document DICTATION DATE: 03/23/191542 WAISTLINE JOINER LOCKSTITCH: ROSA ELENA 03/23/191542 RPT#: [id number] DC DATE: STATUS: ADM IN [facility] [address] [place] [address] END OF REPORT
--- NOTE | 2019-03-23 15:53 | MORECARE ---
CASE MANAGEMENT DISCHARGE SUMMARY PATIENT: TANISHA FLOOD UNIT: [id number] ADM DATE: 03/14/19 AGE: 28 : [birth year] SEX: M ROOM/BED: D.8805 AUTHOR: MORENODOC PHYSICIAN: REFERRING PHYSICIAN: VAL ALBERT MD DATE OF SERVICE: 03/23/19 Discharge Plan Patient Name: TANISHA FLOOD Facility: [facility]:[place] : 1990 Planned Disposition: Court\Law Enforcement Anticipated Discharge Date: 03/24/19 Discharge Date: Expected LOS: 10 Initial Reviewer: [email or web address] Initial Review Date: 03/19/2019 Generated: 03/23/19 4:53 pm Comments DCP- Discharge Planning Updated by [email or web address]: Jefry Duncan on 03/23/19 2:[address] Patient Name: TANISHA FLOOD Encounter No: [id number] : 1990 Primary Insurance: MEDICAID RESIDENTIAL PENDING Anticipated DC Date: Planned Disposition: Court\Law Enforcement External Planned Provider: [facility], [facility] DCP follow-up note: CM RECEIVED DISCHARGE ORDERS, SPOKE TO RN CM HOUSE WHO HAS DISCUSSED NEED FOR DOCTOR TO DOCTOR CONVERSTATION FOR PT TO RETURN TO [facility]. TERRY COOPER IN FORMED RN CM HOUSE THAT DR. BALDERAS WOULD NOT DO THE PEER TO PEER AND DR. MAK AGREED TO DO THE CALL TOMORROW, 03-24-19. THE MAIN NUMBER TO [facility] IS [phone]. REYES Mota DCP- Discharge Planning Updated by [email or web address]: Catia Gomez on 03/20/19 1:[address] LATE ENTRY 03/19/19 Patient Name: TANISHA FLOOD Admission Status: ER Accout number: [id number] Admission Date: 03-14-2019 : 1990 Admission Diagnosis: Attending: VAL ALBERT Current LOS: 5 Anticipated DC Date: Planned Disposition: Court\Law Enforcement Primary Insurance: MEDICAID RESIDENTIAL PENDING Discharge Planning Comments: PATIENT WILL RETURN TO [place] [facility] UPON DISCHARGE. GUARD AT BEDSIDE. CM WILL CONTINUE TO FOLLOW AND ASSIST NEEDED WITH DISCHARGE PLANNING / NEEDS. Biomedical Technician: Catia Jason DCPIA - Discharge Planning Initial Assessment Updated by [email or web address]: Catia Gomez on 03/20/19 2:16 pm * Is the patient Alert and Oriented? Yes * How many steps to enter\exit or inside your home? * PCP [facility] * Pharmacy [facility] * Preadmission Environment Other * Other Environment [facility] * Facility Name [facility] [place] * ADLs Independent Last DP export: 03/20/19 1:25 Patient Name: TANISHA FLOOD Page 03434 at 1553 All edits/amendments must be made on the electronic document DICTATION DATE: 03/23/191552 INTERNATIONAL TAX MANAGER: ROSA ELENA 03/23/191552 RPT#: [id number] DC DATE: STATUS: ADM IN [facility] [address] [place] [address] END OF REPORT
--- NOTE | 2019-03-23 16:51 | OP ---
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 PROCEDURE: 1. Pseudoaneurysm resections from the left upper extremity arteriovenous fistula. 2. Left upper extremity arteriovenous fistula ligation. SURGEON: Jeferson Ragland MD SENIOR MAINFRAME PROGRAMMER ANALYST: None. BLOOD LOSS: 250 cc. ANESTHESIA: General. COMPLICATIONS: None. The risks, possible complications, and alternatives to the procedure were explained to the patient. He elects to proceed. OPERATIVE COURSE: The patient was conveyed to the operating room electively on 03/21/2019. General anesthesia was induced by the anesthesia staff. The left upper extremity was abducted at 90 degrees to the patient's trunk. The left upper extremity was sterilely prepped and draped. Utilizing the color Doppler, I interrogated the fistula. Proximally, there were 2 saccular pseudoaneurysms and then most of the fistula distal to the cubital fossa was a large fusiform aneurysm. It appeared that there was retrograde flow through the fistula. This softest portion of the fistula was right in cubital fossa. A transverse incision was accomplished. I dissected down to the vein, which was likely the cephalic vein and it had large side branch. The large side branch was ligated with a silk suture. I then dissected around the cephalic vein and then ligated it with a single firing of the TA 60 stapler. There was still flow through both portions of the fistula proximal and distal to the point of the ligation. An axial incision was accomplished over the fistula in the distal arm. I dissected down to a soft area between 2 pseudoaneurysms. I was able to dissect around this vein and then ligate it with a single firing of TA 30 stapler. There was still flow in a secondary pseudoaneurysm which was right next to this first pseudoaneurysm. I chose to ligate the fistula distally in the mid forearm. I dissected down to the fusiform fistula and got around a soft part close to what I believed to be an anastomosis to the radial artery. I dissected around this fusiform aneurysm OPERATIVE REPORT [id number] TANISHA FLOOD then ligated with a single firing of the TA vascular stapler. There was still flow in the saccular aneurysm in the distal arm. I accomplished an axial incision which formed a T with the transverse incision at the cubital fossa. I inflated the tourniquet, and I entered a pseudoaneurysm which had clot in it as well as blood that was coming out of a vascular structure into the pseudoaneurysm. The pseudoaneurysm was heavily calcified. I excised the pseudoaneurysm sharply. I dissected down to a vessel into the pseudoaneurysm. I ligated this vessel with metallic clips. I then was able to deliver the first pseudoaneurysm into the incision. I stapled across the junction between the pseudoaneurysm and a vascular structure laterally. I stapled across this with a TA 30 stapler and then excised this pseudoaneurysm with Zapata scissors. Therefore, both of the saccular pseudoaneurysms proximally had been excised. I did not try to excise the large diffuse fusiform pseudoaneurysm in the forearm for fear that this would lead to a nerve or vascular injury. Doppler signal could be heard in the ulnar artery at the wrist. I examined the arm as well as forearm for flow utilizing the color Doppler, indeed there was arterial flow. The incisions were closed in 2 layers. The subdermis was approximated with interrupted 3-0 Vicryls. The skin at all the operative sites was closed with running 3-0 Vicryls. A compression dressing was applied. The patient was then extubated and conveyed to post-anesthesia care unit. He was then conveyed back to the ICU. In the ICU, I saw him. He was complaining of pain. The dressing was dry. He had a pulse oximeter on the left hand and there was a 100 percent saturation via the pulse oximeter. TRANSINT:[id number] Voice Confirmation ID: [id number] DOCUMENT ID: [id number] JEFERSON RAGLAND MD at 1654 CC: [id number] DICTATION DATE: 03/22/191722 TOOLROOM ATTENDANT: 03/22/19 2330 ADM IN [facility] [id number] [place] [address]
[2019-03-23 17:27] VITALS: BP 182/74
--- NOTE | 2019-03-23 19:24 | NUR ---
RECEIVED REPORT, WILL ASSUME CARE OF PT. COMPLAINS MORPHINE IR IS NOT WORKING, PAGED ADJUSTER LEADER, TO SEE IF WE COULD DO SOMETHING ELSE, WILL WAIT FOR CALL BACK
[2019-03-23 20:00] VITALS: BP 110/53
--- NOTE | 2019-03-23 20:13 | NUR ---
SPOKE WITH TIERRA STEWART- NO NEW ORDERS AT THIS TIME
[2019-03-24] VITALS: BP 154/76
--- NOTE | 2019-03-24 02:14 | NUR ---
I have reviewed this patient and I concur with the Shift Assessment completed by the Licensed Practical Nurse today this shift.
[2019-03-24 04:00] VITALS: BP 161/79
[2019-03-24 08:50] VITALS: BP 156/77
[2019-03-24 09:09] LABS: ALDOSTERONE 7.7 ng/dL (0.0-30.0)
[2019-03-24] MEDS ORDERED: HYDROCODON-ACE1 EAC7 PO (11:16)
[2019-03-24 11:59] VITALS: BP 142/80
--- NOTE | 2019-03-24 12:30 | NUR ---
REPORT CALLED TO DEPT OF [facility]. [facility]. [facility] CALLED FOR TRANSFER. ARRANGEMENTS MADE WITH TREV KYEES FOR AROUND 2PM. WILL CONT. PLAN OF CARE.
--- NOTE | 2019-03-24 14:23 | NUR ---
LEAVING HOSP WITH EMS.
--- NOTE | 2019-03-24 16:59 | MORECARE ---
CASE MANAGEMENT DISCHARGE SUMMARY PATIENT: TANISHA FLOOD UNIT: [id number] ADM DATE: 03/14/19 AGE: 28 : [birth year] SEX: M ROOM/BED: D.1305 AUTHOR: SAE MAYER PHYSICIAN: REFERRING PHYSICIAN: VAL ALBERT MD DATE OF SERVICE: 03/24/19 Discharge Plan Patient Name: TANISHA FLOOD Facility: [facility]:[place] : 1990 Planned Disposition: Court\Law Enforcement Anticipated Discharge Date: 03/24/19 Discharge Date: 03/24/2019 Expected LOS: 10 Initial Reviewer: [email or web address] Initial Review Date: 03/19/2019 Generated: 03/24/19 5:59 pm Comments DCP- Discharge Planning Updated by [email or web address]: Jefry Duncan on 03/23/19 2:[address] Patient Name: TANISHA FLOOD Encounter No: [id number] : 1990 Primary Insurance: MEDICAID RESIDENTIAL PENDING Anticipated DC Date: Planned Disposition: Court\Law Enforcement External Planned Provider: [facility], [facility] DCP follow-up note: CM RECEIVED DISCHARGE ORDERS, SPOKE TO RN CM HOUSE WHO HAS DISCUSSED NEED FOR DOCTOR TO DOCTOR CONVERSTATION FOR PT TO RETURN [facility]. TERRY COOPER IN FORMED RN CM HOUSE THAT DR. BALDERAS WOULD NOT DO THE PEER TO PEER AND DR. MAK AGREED TO DO THE CALL TOMORROW, 03-24-19. THE MAIN NUMBER TO [facility] IS [phone]. Jefry Duncan, REYES ALVAREZ DCP- Discharge Planning Updated by [id number]: Catia Gomez on 03/20/19 1:[address] LATE ENTRY 03/19/19 Patient Name: TANISHA FLOOD Admission Status: ER Accout number: [id number] Admission Date: 03-14-2019 : 1990 Admission Diagnosis: Attending: VAL ALBERT Current LOS: 5 Anticipated DC Date: Planned Disposition: Court\Law Enforcement Primary Insurance: MEDICAID RESIDENTIAL PENDING Discharge Planning Comments: PATIENT WILL RETURN TO [facility] UPON DISCHARGE. GUARD AT BEDSIDE. CM WILL CONTINUE TO FOLLOW AND ASSIST NEEDED WITH DISCHARGE PLANNING / NEEDS. Staff Radiographer: Catia Gomez DCPIA - Discharge Planning Initial Assessment Updated by [id number]: Catia Gomez on 03/20/19 2:16 pm * Is the patient Alert and Oriented? Yes * How many steps to enter\exit or inside your home? * [facility]CP [facility] * Pharmacy [facility] * Preadmission Environment Other * Other Environment [facility] * Facility Name [facility] [place] * ADLs Independent Last DP export: 03/23/19 2:53 Patient Name: TANISHA FLOOD Page [id number] at 165 All edits/amendments must be made on the electronic document DICTATION DATE: 03/24/191658 OWNER SPA DIRECTOR: ROSA ELENA 03/24/191658 RPT#: [id number] DC DATE:03/24/19 STATUS: DIS IN [address] [address] END OF REPORT
--- NOTE | 2019-03-30 08:49 | OP ---
PATIENT NAME: TANISHA FLOOD MEDICAL RECORD: [id number] :[birth year] LOCATION:D.M2 D.2125 ADMISSION DATE:03/14/19 SURGEON: JEFERSON RAGLAND MD DATE OF OPERATION: 03/16/2019 PREOPERATIVE DIAGNOSIS: Symptomatic gallstones. POSTOPERATIVE DIAGNOSES: Symptomatic gallstones with hepatomegaly. PROCEDURES: 1. Laparoscopic cholecystectomy. 2. Intraoperative cholangiography without immediate surgeon interpretation. 3. A 14-gauge core needle liver biopsy. SURGEON: Jeferson Ragland MD MANAGER VALIDATION: None. BLOOD LOSS: 400 cc. ANESTHESIA: General. The risks, possible complications, and alternatives to the procedure were explained to the patient. He elects to proceed. The discussion specifically included, but was not limited to, bleeding requiring emergency reoperation, infection, intestinal injury, common bile duct injury, and an open procedure. OPERATIVE COURSE: The patient was conveyed to the operating room electively on 03/16/2019. General anesthesia was induced by anesthesia staff. The abdomen was sterilely prepped and draped. A small skin incision was accomplished in the left upper quadrant. A Veress needle was inserted through a skin incision in the peritoneal cavity. CO2 insufflation was begun. The insufflation pressures were high. I reinserted the Veress needle again and identified high pressures. At this point, I elected for a cutdown procedure. A transverse incision was accomplished above the umbilicus. I dissected down to the anterior fascia and 0 Vicryl sutures were placed on either side of the anterior fascia, which was incised in the midline. The peritoneal cavity was entered bluntly. A 12-mm trocar was inserted. CO2 insufflation was begun. Once a sufficient pneumoperitoneum had been achieved, I identified that the Veress needle had caused some punctures in the left lateral segment of the liver and these were quickly cauterized with the electrocautery and there was no further bleeding. Two more trocars were inserted. One was inserted in epigastrium and one was inserted far laterally in the right upper quadrant. During insertion of these structures, a superficial laceration occurred along the convexity of the liver and here again this site was cauterized with electrocautery. The patient had a significantly sized liver and had a small abdominal cavity to work within. Under laparoscopic guidance, I percutaneously accessed the right upper quadrant utilizing an 14-gauge core needle liver biopsy device. Cores were obtained over the convexity of the liver. The biopsy sites were made hemostatic with electrocautery. The gallbladder was grasped. I advanced a cholangiogram trocar. I punctured the fundus of the gallbladder. I withdrew bile. I then injected dye. Under OPERATIVE REPORT [id number] TANISHA FLOOD real time fluoroscopy, static fluoroscopic images were obtained and these are cholangiographic images that are sent to the radiologist for interpretation. The cholangiogram trocar was removed and the gallbladder was retracted cephalad. The infundibulum was retracted laterally. Blunt dissection was begun on the triangle of Calot. Here again things were fairly oozy from a bleeding standpoint. One cystic artery and one cystic duct were identified. These were clipped multiply and divided between clips. I then began to dissect the gallbladder off the liver bed. Here again there was some bleeding. This may be due to back pressure due to the patient's cardiomyopathy in addition to his pulmonary artery hypertension. The gallbladder was removed from the liver and was placed within a bag retrieval device and was withdrawn through the supraumbilical fascia defect. A 12-mm trocar was placed and the abdomen reinsufflated. I irrigated and aspirated the right upper quadrant. There was no bleeding even at low pressure of 8. A 10-Iranian round fully fluted drain was advanced through the lateral most trocar site. It was placed under the acute margin of the liver. All the trocars were removed and the abdomen desufflated. The drain was sutured to skin with a 4-0 nylon. The trocar sites were closed with interrupted intracuticular 3-0 Vicryls. The supraumbilical fascia was closed with a horizontal mattress 0 Vicryl. The skin above the umbilicus was closed with interrupted intracuticular 3-0 Vicryls. Benzoin and Steri-Strips were applied. The patient was then extubated and conveyed to post-anesthesia care unit. I did not attempt to perform the fistula ligation this evening as the patient had some instability and blood pressure and O2 saturation during the operation. I felt it would be better to do this secondary procedure at another time. The patient was conveyed to the intensive care unit. TRANSINT:[id number] Voice Confirmation ID: [id number] DOCUMENT ID: [id number] JEFERSON RAGLAND MD at 0849 CC: [id number] DICTATION DATE: 03/23/19 1437 COKE PRODUCTION HEATER: 03/23/192021 DIS IN 03/24/19 [place] [id number] [place] [address]
== END 2019-03-24 14:24 | DRG 252 ==
LOC: D.ER 07:54 → D.M2 08:00 → D.ICU 08:00 → D.M2 03-23 07:11
PROVIDERS: Anesthesiology; Family Medicine; Internal Medicine Pulmonary Disease; Specialist; Surgery; ADMIT Internal Medicine Nephrology; ATTEND Internal Medicine Nephrology
PROC: 0W993ZZ Drainage of Right Pleural Cavity, Percutaneous Approach (ICD-10-PCS; 2019-03-14)
PROC: 5A1D70Z Performance of Urinary Filtration, Intermittent, Less than 6 Hours Per Day (ICD-10-PCS; 2019-03-14)
PROC: 0FB04ZX Excision of Liver, Percutaneous Endoscopic Approach, Diagnostic (ICD-10-PCS; 2019-03-16)
PROC: 0FT44ZZ Resection of Gallbladder, Percutaneous Endoscopic Approach (ICD-10-PCS; 2019-03-16)
PROC: BF101ZZ Fluoroscopy of Bile Ducts using Low Osmolar Contrast (ICD-10-PCS; 2019-03-16)
PROC: 05LF0ZZ Occlusion of Left Cephalic Vein, Open Approach (ICD-10-PCS; 2019-03-21)
PROC: 03LC0ZZ Occlusion of Left Radial Artery, Open Approach (ICD-10-PCS; principal; 2019-03-21 11:30)
DX: I13.2 Hypertensive heart and chronic kidney disease with heart failure and with stage 5 chronic kidney disease, or end stage renal disease (principal); I50.23 Acute on chronic systolic (congestive) heart failure; N18.6 End stage renal disease; J96.01 Acute respiratory failure with hypoxia; J98.11 Atelectasis; L76.32 Postprocedural hematoma of skin and subcutaneous tissue following other procedure; K56.7 Ileus, unspecified; D62 Acute posthemorrhagic anemia; Z99.2 Dependence on renal dialysis; G40.909 Epilepsy, unspecified, not intractable, without status epilepticus; I08.1 Rheumatic disorders of both mitral and tricuspid valves; J44.9 Chronic obstructive pulmonary disease, unspecified; E87.5 Hyperkalemia; F41.8 Other specified anxiety disorders; K81.1 Chronic cholecystitis; D50.9 Iron deficiency anemia, unspecified; Y83.9 Surgical procedure, unspecified as the cause of abnormal reaction of the patient, or of later complication, without mention of misadventure at the time of the procedure; R14.0 Abdominal distension (gaseous); I72.1 Aneurysm of artery of upper extremity; Z72.0 Tobacco use

== ENCOUNTER 2019-05-28 06:09 | Inpatient (IN) | payer MEDICAID ==
[2019-05-28] VITALS (22 sets, daily range): BP systolic 140–198; BP diastolic 85–147
[~2019-05-28] VITALS: Ht 180.3 cm; Wt 69.6 kg
[~2019-05-28 06:09] MED LIST changes: +HYDROCODON-ACE1 EAC7 PO
--- NOTE | 2019-05-28 06:30 | NUR ---
RT AT BEDSIDE FOR ABG
[2019-05-28 06:42] LABS: BASOPHILS 0.5 % (0-2); EOSINOPHILS 4.2 % (0-7); HEMATOCRIT 32.2 % (42.0-54.0); HEMOGLOBIN 10.1 g/dL (13.5-17.5); IMMATURE GRANULOCYTES 0.5 % (0-5); LYMPHOCYTES 9.9 % (15-50); MCH 28.1 pg (26.0-34.0); MCHC 31.4 g/dL (31.0-37.0); MCV 89.7 fL (80.0-100.0); MONOCYTES 4.3 % (2-11); NEUTROPHILS 80.6 % (40-80); RBC 3.59 10x6/uL (4.20-6.10); RDW 17.2 % (11.5-14.5); WBC 10.3 10x3/uL (4.8-10.8)
[2019-05-28] MEDS ORDERED: ZOFRAN PO (06:43)
[2019-05-28] MEDS ORDERED: METHYLDOPA PO (06:45)
[2019-05-28] MEDS ORDERED: CARDURA4 MG (06:45)
[2019-05-28] MEDS ORDERED: LOSARTAN/POTASSIUM PO (06:45)
[2019-05-28] MEDS ORDERED: VITAMIN B-6 PO (06:46)
[2019-05-28] MEDS ORDERED: VITAMIN B-121000 MCG INJ (06:47)
[2019-05-28] MEDS ORDERED: PROTONIX40 MG PO (06:48)
[2019-05-28] MEDS ORDERED: NEPHROCAPS (06:48)
[2019-05-28] MEDS ORDERED: FERREX PO (06:48)
[2019-05-28] MEDS ORDERED: CORLANOR PO (06:49)
[2019-05-28 07:04] LABS: ALBUMIN 3.2 g/dL (3.4-5.0); ALKALINE PHOSPHATASE 353 U/L (30-120); ALT (SGPT) 63 U/L (10-68); BILIRUBIN - TOTAL 1.36 mg/dL (0.2-1.3); CALC OSMOLALITY 302 mosm/kg (275-300); CALCIUM 9.7 mg/dL (8.5-10.1); CARBON DIOXIDE 17.6 mmol/L (21.0-32.0); CHLORIDE - SERUM 102 mmol/L (98-107); CKMB 3.9 U/L (0.0-3.6); CREATINE KINASE 85 UL (21-232); CREATININE - SERUM 9.8 mg/dL (0.6-1.3); GLUCOSE 107 mg/dL (74-106); MAGNESIUM - SERUM 3.2 mg/dL (1.8-2.4); PROTEIN - SERUM 8.1 g/dL (6.4-8.2); SODIUM 137 mmol/L (136-145); UREA NITROGEN 93 mg/dL (7-18); eGFR NON AFRICAN AMERICAN 7 mL/min (90-120)
[2019-05-28 07:05] LABS: PLATELET COUNT 166 10x3/uL (130-400)
[2019-05-28 07:15] LABS: POTASSIUM - SERUM 8.1 mmol/L (3.5-5.1); TROPONIN-I 0.122 ng/mL (0.000-0.060)
--- NOTE | 2019-05-28 07:16 | NUR ---
PT HAD COPIOUS EMESIS FOLLOWING KAYEXOLATE.
--- NOTE | 2019-05-28 07:39 | NUR ---
2 SENIOR LIVING GUARDS AT BEDSIDE. [facility] AND [facility] FROM [facility].
[2019-05-28 07:50] LABS: APTT 39.7 SECONDS (22.8-39.4); INR 1.36 (0.85-1.17); PROTIME 16.6 SECONDS (11.6-15.0)
--- NOTE | 2019-05-28 07:50 | NUR ---
CALCIUM GLUCONATE FINISHED INFUSING 50 ML
[2019-05-28 07:52] LABS: PRO BNP 131596 pg/mL (0-125)
--- NOTE | 2019-05-28 08:00 | NUR ---
0800 REPORT FROM TRISHA IN ER ROOM SET UP PATIENT HASNT ARRIVED YET WIDE LOAD ESCORT PRESENT WITH EQUIPMENT TO DO DIALYSIS
--- NOTE | 2019-05-28 08:19 | NUR ---
DILTIAZIM STILL INFUSING AT 5ML\H
--- NOTE | 2019-05-28 10:43 | NUR ---
0831 ARRIVED TO ROOM VIA STRETCHER DIALYSIS STAFF PRESENT TO BEGIN DIALYSIS. ASSESSMENT AND MEDICAL HISTORY COMPLETE
--- NOTE | 2019-05-28 19:00 | NUR ---
Report received from off going nurse. Pt is sitting up in bed. No needs voiced at this time. NO s/s of distress. Will continue to monitor.
--- NOTE | 2019-05-28 21:00 | NUR ---
Pt is sitting up in bed at this time. No needs noted at this time. NO s/s of distress noted. Will continue to monitor.
--- NOTE | 2019-05-28 23:00 | NUR ---
Reassessment completed, see flowsheet for details. Pt is sitting up in bed with eyes open. NO s/s of distress noted. Will continue to monitor.
[2019-05-29] VITALS (15 sets, daily range): BP systolic 137–165; BP diastolic 96–126; Ht 180.3 cm; Wt 69.6 kg
--- NOTE | 2019-05-29 01:00 | NUR ---
Pt is resting in bed with eyes closed at this time. No needs voiced. No s/s of distress noted. Will continue to monitor.
--- NOTE | 2019-05-29 03:00 | NUR ---
Reassessment completed, see flowsheet for details. Pt is resting in bed with eyes closed. No needs voiced. No s/s of distress noted will continue to monitor.
--- NOTE | 2019-05-29 05:00 | NUR ---
Pt is laying in bed with eyes closed. No needs voiced at this time. No s/s of distress noted. Will continue to monitor.
--- NOTE | 2019-05-29 07:08 | NUR ---
INTRODUCED NURSE FOR CURRENT SHIFT. OBTAINED PHYSICAL ASSESSMENT. BED IS IN LOW POSITION AND CALL LIGHT IS IN REACH. PATIENT DENIES ANY NEEDS AND OR PAIN AT THIS TIME. IV TO THE RIGHT WRIST IS SALINE LOCKED. GONSALO IS AT BEDSIDE. EDUCATED PATIENT ON THE CALLLIGHT. WILL CONTINUE TO MONITOR
--- NOTE | 2019-05-29 08:52 | NUR ---
MEDS GIVEN PER MAR. BATHING SUPPLIES GIVEN TO PATIENT. PATEINT DENIES NEEDS AT THIS TIME
[2019-05-29 10:09] LABS: HEPATITIS C ANTIBODY <0.1 S/CO RAT (0.0-0.9)
--- NOTE | 2019-05-29 11:34 | NUR ---
PATIENT IS RESTING QUIELTY. MEDS GIVEN PER MAR. REQUESTING LUNCH EARLY BECAUSE HE IS HUNGRY
--- NOTE | 2019-05-29 13:18 | NUR ---
PATIENT RESTING WITH EYES CLOSED. BED IS IN LOW POSITION AND CALL LIGHT IS IN REACH.
--- NOTE | 2019-05-29 14:35 | NUR ---
PROVIDED PATIENT WITH POPCICLE AND ICE CREAM. PATIENT DENIES ANY ADDITIONAL NEEDS AT THIS TIME
--- NOTE | 2019-05-29 19:00 | NUR ---
Report received from off going nurse. Pt is sitting up in bed with eyes open watching tv with guard present. No needs voiced at this time. Initial assessment completed, see flowsheet for details. No s/s of distress. Will continue to monitor.
--- NOTE | 2019-05-29 21:00 | NUR ---
Pt is sitting up in bed watching tv at this time with guard present at bedside. No needs voiced. No s/s of distress noted. Will continue to monitor.
--- NOTE | 2019-05-29 23:00 | NUR ---
Pt is sitting up in bed with eyes closed. No needs voiced. No s/s of distress noted. Will continue to monitor.
[2019-05-30] VITALS (11 sets, daily range): BP systolic 100–164; BP diastolic 91–129
--- NOTE | 2019-05-30 01:00 | NUR ---
Pt is laying in bed with eyes closed. No needs voiced. No s/s of distress noted. Will continue to monitor.
--- NOTE | 2019-05-30 03:00 | NUR ---
Pt is laying in bed watching tv at this time. No needs voiced. No s/s of distress noted. Will continue to monitor.
[2019-05-30 04:39] LABS: BASOPHILS 0.6 % (0-2); EOSINOPHILS 14.2 % (0-7); HEMATOCRIT 28.9 % (42.0-54.0); IMMATURE GRANULOCYTES 0.2 % (0-5); LYMPHOCYTES 14.5 % (15-50); MCH 27.9 pg (26.0-34.0); MCHC 31.1 g/dL (31.0-37.0); MCV 89.5 fL (80.0-100.0); MEAN PLATELET VOLUME 8.9 fL (7.4-10.4); MONOCYTES 5.4 % (2-11); NEUTROPHILS 65.1 % (40-80); PLATELET COUNT 160 10x3/uL (130-400); RBC 3.23 10x6/uL (4.20-6.10); RDW 16.9 % (11.5-14.5)
[2019-05-30 04:51] LABS: APTT 42.5 SECONDS (22.8-39.4); INR 1.22 (0.85-1.17); PROTIME 15.4 SECONDS (11.6-15.0)
[2019-05-30 04:53] LABS: CALCIUM 8.8 mg/dL (8.5-10.1); CREATININE - SERUM 9.5 mg/dL (0.6-1.3)
--- NOTE | 2019-05-30 05:00 | NUR ---
Pt is laying in bed watching tv at this time. No needs voiced. No s/s of distress noted. Will continue to monitor.
--- NOTE | 2019-05-30 08:55 | NUR ---
0700 SLEEPY, AWAKENS TO VOICE INSTRUCTED NPO FOR THOROCENTHESIS TODAY VERBALIZED UNDERSTANDING ASSESSMENT COMPLETE
--- NOTE | 2019-05-30 12:23 | MORECARE ---
CASE MANAGEMENT DISCHARGE SUMMARY PATIENT: TANISHA FLOOD UNIT: [id number] ADM DATE: 05/28/19 AGE: 29 : [birth year] SEX: M ROOM/BED: D.2314 AUTHOR: SAE MAYER PHYSICIAN: REFERRING PHYSICIAN: VAL ALBERT MD DATE OF SERVICE: 05/30/19 Discharge Plan Patient Name: TANISHA FLOOD Facility: [facility]:[place] : 1990 Planned Disposition: Court\Law Enforcement Anticipated Discharge Date: Discharge Date: Expected LOS: Initial Reviewer: [email or web address] Initial Review Date: 05/29/2019 Generated: 05/30/19 1:22 pm Patient Name: TANISHA FLOOD Page [id number] at 1223 All edits/amendments must be made on the electronic document DICTATION DATE: 05/30/19 122 TOP WADDY: ROSA ELENA 05/30/19 1222 RPT#: [id number] DC DATE: STATUS: ADM IN [facility] [address] [place] [address] END OF REPORT
--- NOTE | 2019-05-30 12:31 | MORECARE ---
CASE MANAGEMENT DISCHARGE SUMMARY PATIENT: TANISHA FLOOD UNIT: [id number] ADM DATE: 05/28/19 AGE: 29 : [birth year] SEX: M ROOM/BED: D.2314 AUTHOR: SAE MAYER PHYSICIAN: REFERRING PHYSICIAN: VAL ALBERT MD DATE OF SERVICE: 05/30/19 Discharge Plan Patient Name: TANISHA FLOOD Facility: [facility]:[place] : 1990 Planned Disposition: Court\Law Enforcement Anticipated Discharge Date: Discharge Date: Expected LOS: Initial Reviewer: [email or web address] Initial Review Date: 05/29/2019 Generated: 05/30/19 1:30 pm Comments DCP- Discharge Planning Updated by [id number]: Catia Gomez on 05/30/19 11:[address] LATE ENTRY 05/29/19 Patient Name: TANISHA FLOOD Admission Status: Elective Accout number: [id number] Admission Date: 05-28-2019 : 1990 Admission Diagnosis: Attending: VAL ALBERT Current LOS: 1 Anticipated DC Date: Planned Disposition: Court\Law Enforcement Primary Insurance: MEDICAID [facility] PENDING Discharge Planning Comments: PATIENT IS AN INMATE AT [facility] AND WILL BE RETURNING THERE UPON DISCHARGE. GUARD AT BEDSIDE. Model Maker Firearms: Catia Gomez DCPIA - Discharge Planning Initial Assessment Updated by [id number]: Catia Gomez on 05/30/19 12:23 pm * Is the patient Alert and Oriented? Yes * How many steps to enter\exit or inside your home? * [facility]CP [facility] * [facility] * Preadmission Environment Other * Other Environment [facility] * Facility Name [facility] * ADLs Independent * List name and contact numbers for known caregivers / representatives who currently or will assist patient after discharge: [facility] * Verbal permission to speak to the caregivers and representatives has been obtained from the patient. N/A * Please name any agencies selected above. HEMODIALYSIS PATIENT * Additional services required to return to the preadmission environment? No * Can the patient safely return to the preadmission environment? Yes Last DP export: 05/30/19 11:23 a Patient Name: TANISHA FLOOD Page [id number] at 1231 All edits/amendments must be made on the electronic document DICTATION DATE: 05/30/19 123 INSTALLMENT DEALER: ROSA ELENA 05/30/19 1230 RPT#: [id number] DC DATE: STATUS: ADM IN [facility] [address] [place] [address] END OF REPORT
--- NOTE | 2019-05-30 13:13 | NUR ---
0900 GUARD REMAINS AT BEDSIDE AM MEDS GIVEN WITH SIPS WITHHELD SEVELAMER PT REMAINS NPO
--- NOTE | 2019-05-30 13:19 | NUR ---
1100 NPO FOR TEST REMAINS IN BED RESTING
--- NOTE | 2019-05-30 13:20 | NUR ---
1300 GAVE BP MEDS DUE NOW WITH SIPS
--- NOTE | 2019-05-30 14:09 | NUR ---
1330 TAKEN ON STRETCHER TO IR LAB WITH IR STAFF FOT POSSIBLE THOROCENTHESIS
--- NOTE | 2019-05-30 14:14 | NUR ---
1414 RETURNED TO ROOM RN STATED IR HAD PULLED OFF 750ML FROM RIGHT LUNG SITE SATISFACTORY
--- NOTE | 2019-05-30 16:50 | NUR ---
4810 LATE LUNCH TRAY SERVED APPETITE GOOD
--- NOTE | 2019-05-30 16:51 | NUR ---
8783 DIALYSIS STARTED IN ROOM DINNER TRAY SERVED
--- NOTE | 2019-05-30 19:18 | NUR ---
PT LYING IN BED AWAKE ALERT AND ORIENTED x4. NO SIGNS OR SYMPTOMS OF DISTRESS NOTED. RESPIRATIONS EVEN AND UNLABORED. DIALYSIS AT BED SIDE. NO COMPLAINTS OF PAIN AT THIS TIME. SNF GAURD AT BEDSIDE. CALL LIGHT WWITH IN REACH AND BED IS IN LOWEST POSITION. PT ENCOURAGED TO CALL FOR HELP WHEN NEEDED. WILL CAONTINUE TO MONITOR
--- NOTE | 2019-05-30 21:03 | NUR ---
PT SITTING UP IN BED AWAKE ALERT AND ORIENTED. GONSALO IS AT BEDSIDE. VANELLA AND SHERBERT ICE CREAM PROVIDED PER PT REQUEST WILL CONTINUE TO MONITOR
--- NOTE | 2019-05-31 00:21 | NUR ---
PT REQUESTING DIFFERENT PAIN MEDICATION. 1 TIME NORCO-[address] VERNON. GONSALO IS AT BEDSIDE. CALL LLIGHT WITH IN REACH WILL CONTINUE TO MONITOR
--- NOTE | 2019-05-31 02:08 | NUR ---
PY LYING IN BED RESTING WITH EYES CLOSED EASILY AWAKEN WITH VOICE STIMULATION. NO SIGNS OR SYMPTOMS OF DISTRESS NOTED. RESPIRATIONS EVEN AND UNLABORED. WILL CONTINUE TO MONITOR.
[2019-05-31 03:30] VITALS: BP 159/125
--- NOTE | 2019-05-31 04:19 | NUR ---
MOHAN JOSEPH AND ALEXIA PROVIDED PER PT REQUEST. GONSALO IS AT BEDSIDE. CALL LIGHT WITH IN REACH. WILL CONTINUE TO MONITOR.
--- NOTE | 2019-05-31 06:12 | NUR ---
I have reviewed this patient and I concur with the Shift Assessment completed by the Licensed Practical Nurse today this shift.
--- NOTE | 2019-05-31 06:29 | NUR ---
COFFEE GIVEN PER PT REQUEST GONSALO IS AT BEDSIDE. NO COMPLAINTS AT THIS TIME. CALL LIGHT WITH IN REACH. WILL CONTINUE TO MONITOR
[2019-05-31 07:00] VITALS: BP 171/110
--- NOTE | 2019-05-31 08:34 | NUR ---
0700 AWAKE ALERT NO C/O PAIN SITTING UP IN BED WATCHING TV ASSESSMENT COMPLETE 02 AT 2LNC SAT 99%
--- NOTE | 2019-05-31 08:41 | NUR ---
0820 BP HIGH 171/110 AM BP MEDS GIVEN
[2019-05-31 08:45] LABS: BASOPHILS 0.4 % (0-2); EOSINOPHILS 13.6 % (0-7); HEMATOCRIT 29.2 % (42.0-54.0); IMMATURE GRANULOCYTES 0.3 % (0-5); LYMPHOCYTES 10.1 % (15-50); MCHC 30.8 g/dL (31.0-37.0); MEAN PLATELET VOLUME 8.8 fL (7.4-10.4); MONOCYTES 5.9 % (2-11); NEUTROPHILS 69.7 % (40-80); PLATELET COUNT 144 10x3/uL (130-400); RBC 3.21 10x6/uL (4.20-6.10); RDW 16.6 % (11.5-14.5); WBC 9.7 10x3/uL (4.8-10.8)
[2019-05-31 09:26] LABS: ALBUMIN 3.3 g/dL (3.4-5.0); ANION GAP 16.5 mmol/L (8-16); BILIRUBIN - TOTAL 0.54 mg/dL (0.2-1.3); CALCIUM 8.8 mg/dL (8.5-10.1); CARBON DIOXIDE 28.6 mmol/L (21.0-32.0); CREATININE - SERUM 8.1 mg/dL (0.6-1.3); PROTEIN - SERUM 7.7 g/dL (6.4-8.2)
[2019-05-31 09:35] LABS: PHOSPHOROUS 9.9 mg/dL (2.5-4.9)
[2019-05-31 09:37] LABS: POTASSIUM - SERUM 6.1 mmol/L (3.5-5.1)
[2019-05-31 11:00] VITALS: BP 171/109
[2019-05-31 15:00] VITALS: BP 134/95
--- NOTE | 2019-05-31 16:48 | EC ---
PATIENT:TANISHA FLOOD DATE OF SERVICE: 05/28/19 SEX: M MEDICAL RECORD: [id number] DATE OF : [birth year] LOCATION:[facility] D231 AGE OF PATIENT: 29 ADMISSION DATE: 05/28/19 REFERRING PHYSICIAN: INTERPRETING PHYSICIAN: MARAL BAHENA MD ECHOCARDIOGRAM REPORT ECHO CHARGES 5 ECHO LIMITED Date: 05/28/19 CLINICAL DIAGNOSIS: ATRIAL FLUTTER ECHOCARDIOGRAPHIC MEASUREMENTS (adult normal given) AC root (d.<3.7cm) 0 cm LV Septum d (<1.2 cm> 0 cm Valve Excursion 0 cm LV Septum (systole) 0 cm Left Atria (s.<4.0cm> 0 cm LVPW d(<1.2cm) 0 cm RV (d.<2.3cm) 0 cm LVPW (sytole) 0 cm LV diastole(<5.6CM) 0 cm MV E-F(>70mm/sec) 0 cm LV systole 0 cm LVOT Diameter 0 cm MV exc.(>10mm) 0 cm Est.ejection fraction (50-75%) % DOPPLER: LVIT cm/sec A 0 cm/sec E 0 cm/sec LA 0 cm/sec RVSP 0 mmHg LVOT 0 cm/sec AOP1/2T 0 m/s Asc. Ao 0 cm/sec RVOT 0 cm/sec RA 0 cm/sec PA 0 cm/sec AV Gradient Peak mmHg AV Mean 0 mmHg AV Area 0 cm MV Gradient Peak 0 mmHg MV Mean 0 mmHg MV Area 0 cm COMMENTS: Zinc Furnace Charger: Cheyanne [facility] Branch Sales Manager: 1 Dr. Bahena TAPE# PACS Pericardial Effusion Y DATE OF SERVICE: FINDINGS: 1. Left ventricular chamber size is moderately dilated. Left ventricular systolic function is markedly reduced at 15% to 20%. 2. Left atrium, right atrium and right ventricular chamber sizes are dilated given 4-chamber dilatation. 3. Valvular structures have normal structure and motion. 4. Doppler interrogation reveals moderate tricuspid regurgitation, no other valvular insufficiency or stenosis. ECHOCARDIOGRAM REPORT [id number] TANISHA FLOOD 5. No evidence of pericardial effusion or left ventricular thrombus. 6. Small pericardial effusion is present. This is not hemodynamically significant. TRANSINT:[id number] Voice Confirmation ID: [id number] DOCUMENT ID: [id number] MARAL BAHENA MD at 1648 CC: [id number] DICTATION DATE: 05/28/19 1626 CASH POSTING REPRESENTATIVE: 05/28/19 1714 ADM IN [place] [id number] [place] [id number]
--- NOTE | 2019-05-31 16:48 | CN ---
PATIENT NAME:TANISHA FLOOD MEDICAL RECORD: [id number] : [birth year] LOCATION:ZACKD.2314 ADMIT DATE: 05/28/19 ACCOUNT: [id number] CONSULTING PHYSICIAN: MARAL FRANCIS MD REFERRING PHYSICIAN: VAL ALBERT MD DATE OF CONSULTATION: 05/28/2019 CARDIOLOGY CONSULTATION DIAGNOSES: 1. Atrial flutter. 2. Cardiomyopathy. 3. Hypertension. 4. End-stage renal failure, dialysis. 5. Hypertension. HISTORY OF PRESENT ILLNESS: Mr. Flood is known to us with a cardiomyopathy, ejection fraction in the 25% range as of last echocardiogram, which was last year. He missed his medications at least 1 day, possibly 2 days, became short of breath, fluid overloaded. His heart rate was fast at the 180s. He has atrial flutter. This is not new. This is a chronic problem. He missed his diltiazem and carvedilol. He has gotten a Cardizem bolus. His heart rate is now in the 110-120 range. He has had no chest pain. No chest discomfort. PHYSICAL EXAMINATION: CONSTITUTIONAL/GENERAL APPEARANCE: Well nourished, well developed, appears stated age. EYES: Lids and conjunctivae noninjected. No discharge. No pallor. ENT: Lips within normal limit. No cyanosis. No pallor. NECK: Carotid arteries, bilateral normal upstroke. No bruits. No thrills. No jugular venous pressure or distention. CERVICAL LYMPH NODES: Nontender. Nonenlarged. THYROID: Not enlarged. No nodules. CARDIOVASCULAR: Precordial exam, nondisplaced. No heaves or pericardial thrills. Rate and rhythm, regular. Heart sounds, normal S1, normal S2. No S3, no gallop, no rub. Systolic murmur, not heard. Diastolic murmur, not heard. RESPIRATORY: Respiratory effort, unlabored. Normal curvature. No thoracic deformity. No chest wall tenderness. Percussion, resonant. Auscultation, clear. No wheezes, no rales, no rhonchi. ABDOMEN: Soft, nondistended, nontender. No abdominal pain, no vomiting and normal appetite. MUSCULOSKELETAL: No joint tenderness, normal gait, normal tone. SKIN: Warm and dry. CERVICAL LYMPH NODES IMPRESSION: Atrial flutter, chronic noncompliance with medication causing the rapid ventricular response. We will restart his Coreg and diltiazem. We will get an echocardiogram to reevaluate his ejection fraction. Otherwise, no other cardiac workup or treatment is necessary. TRANSINT:[id number] Voice Confirmation ID: [id number] DOCUMENT ID: [id number] CONSULT REPORT [id number] TANISHA FLOOD, MARAL OGDEN at 1648 CC: [id number] DICTATION DATE: 05/28/19 1436 LIABILITY CLAIMS MANAGER: 05/29/19 0008 ADM IN [facility] [address] [place] [address]
--- NOTE | 2019-05-31 18:35 | NUR ---
RECIEVED PT FROM ICU. PT HAS A R WRIST PIV THAT IS SL. GUARD AT BEDSIDE. PT HAS A R CHEST HEMOSPLIT. BED LOCKED AND IN LOWEST POSITION, CALL LIGHT WITHIN REACH. WILL CTM
[2019-06-01] VITALS: BP 158/102
[2019-06-01 04:00] VITALS: BP 169/121
[2019-06-01 04:53] LABS: BASOPHILS 0.4 % (0-2); EOSINOPHILS 14.2 % (0-7); HEMATOCRIT 27.4 % (42.0-54.0); HEMOGLOBIN 8.6 g/dL (13.5-17.5); IMMATURE GRANULOCYTES 0.1 % (0-5); MCH 28.4 pg (26.0-34.0); MCHC 31.4 g/dL (31.0-37.0); MCV 90.4 fL (80.0-100.0); MEAN PLATELET VOLUME 9.2 fL (7.4-10.4); MONOCYTES 4.1 % (2-11); NEUTROPHILS 69.2 % (40-80); PLATELET COUNT 150 10x3/uL (130-400); RBC 3.03 10x6/uL (4.20-6.10); RDW 16.4 % (11.5-14.5); WBC 9.7 10x3/uL (4.8-10.8)
[2019-06-01 05:17] LABS: ANION GAP 22.1 mmol/L (8-16); BILIRUBIN - TOTAL 0.61 mg/dL (0.2-1.3); CALCIUM 9.3 mg/dL (8.5-10.1); CARBON DIOXIDE 23.4 mmol/L (21.0-32.0); CREATININE - SERUM 9.5 mg/dL (0.6-1.3); PHOSPHOROUS 9.9 mg/dL (2.5-4.9); PROTEIN - SERUM 7.8 g/dL (6.4-8.2)
[2019-06-01 05:31] LABS: POTASSIUM - SERUM 6.5 mmol/L (3.5-5.1)
[2019-06-01 10:03] VITALS: BP 163/112
--- NOTE | 2019-06-01 11:53 | NUR ---
NUTRITION FOLLOW UP COMMENTS: Patient has been eating well. In dialysis today. DIET: Renal Diet PO INTAKE: 100% x 4 meals WEIGHT: 153 lbs (05/30) and 149 lbs (05/28) BM: x 1 (05/28) SIG LABS: PO4- 9.9, K- 6.5, Albumin- 3.0 SIG MEDS: Protonix, Renagel, Folic Acid Goals- Renal labs WNL, BM q 3 days Clinical Dietitian to continue following and monitoring patient DHS
--- NOTE | 2019-06-01 14:10 | NUR ---
PT BACK FROM DIALYSIS, LUNCH TRAY AT BEDSIDE.
[2019-06-01 18:09] VITALS: BP 137/88
[2019-06-01 20:30] VITALS: BP 158/102
[2019-06-02 00:30] VITALS: BP 165/110
[2019-06-02 04:30] VITALS: BP 148/115
[2019-06-02 05:21] LABS: BASOPHILS 0.7 % (0-2); EOSINOPHILS 15.6 % (0-7); HEMATOCRIT 30.6 % (42.0-54.0); HEMOGLOBIN 9.3 g/dL (13.5-17.5); IMMATURE GRANULOCYTES 0.2 % (0-5); LYMPHOCYTES 13.5 % (15-50); MCH 27.8 pg (26.0-34.0); MCHC 30.4 g/dL (31.0-37.0); MCV 91.3 fL (80.0-100.0); MEAN PLATELET VOLUME 9.6 fL (7.4-10.4); MONOCYTES 4.8 % (2-11); NEUTROPHILS 65.2 % (40-80); RBC 3.35 10x6/uL (4.20-6.10); RDW 16.5 % (11.5-14.5); WBC 9.6 10x3/uL (4.8-10.8)
[2019-06-02 05:27] LABS: PLATELET COUNT 190 10x3/uL (130-400)
[2019-06-02 05:46] LABS: BILIRUBIN - TOTAL 0.6 mg/dL (0.2-1.3); CALCIUM 9.2 mg/dL (8.5-10.1); CREATININE - SERUM 7.3 mg/dL (0.6-1.3); PROTEIN - SERUM 8.2 g/dL (6.4-8.2)
[2019-06-02 05:59] LABS: ANION GAP 15.3 mmol/L (8-16); POTASSIUM - SERUM 6.3 mmol/L (3.5-5.1)
--- NOTE | 2019-06-02 07:47 | NUR ---
RECIVED REPORT. PATIENT IS AWAKE AND ALERT AND DENIES ANY NEEDS AT THIS TIME. HE IS RESTING ON HIS BACK IN BED, GAURD AT BEDSIDE.
[2019-06-02 08:21] VITALS: BP 175/108
[2019-06-02] MEDS ORDERED: NORVASC5 MG PO (11:12)
[2019-06-02] MEDS ORDERED: CARDURA4 MG PO (11:12)
[2019-06-02] MEDS ORDERED: VELTASSA8.4 GM PO (11:12)
[2019-06-02 11:22] VITALS: BP 163/99
--- NOTE | 2019-06-02 14:42 | NUR ---
PATIENT WILL GO TO DIALYSIS THIS AFTERNOON.
[2019-06-02 15:32] VITALS: BP 119/66
--- NOTE | 2019-06-02 16:01 | NUR ---
PATIENT IS SITTING UP IN BED, WATCHING TV. GONSALO AT BEDSIDE.
--- NOTE | 2019-06-02 17:49 | NUR ---
PATIENT IS IN DIALYSIS AT THIS TIME.
[2019-06-03 00:30] VITALS: BP 144/90
[2019-06-03 02:40] LABS: BASOPHILS 0.6 % (0-2); EOSINOPHILS 12.7 % (0-7); HEMATOCRIT 31.9 % (42.0-54.0); IMMATURE GRANULOCYTES 0.4 % (0-5); LYMPHOCYTES 12.5 % (15-50); MCH 28.5 pg (26.0-34.0); MCHC 31.3 g/dL (31.0-37.0); MCV 90.9 fL (80.0-100.0); MONOCYTES 6.2 % (2-11); NEUTROPHILS 67.6 % (40-80); PLATELET COUNT 216 10x3/uL (130-400); RBC 3.51 10x6/uL (4.20-6.10); RDW 16.2 % (11.5-14.5)
[2019-06-03 02:56] LABS: ALBUMIN 3.4 g/dL (3.4-5.0); ANION GAP 17.2 mmol/L (8-16); BILIRUBIN - TOTAL 0.47 mg/dL (0.2-1.3); CALCIUM 9.6 mg/dL (8.5-10.1); CARBON DIOXIDE 25.3 mmol/L (21.0-32.0); CREATININE - SERUM 6.3 mg/dL (0.6-1.3); PHOSPHOROUS 7.6 mg/dL (2.5-4.9); POTASSIUM - SERUM 5.5 mmol/L (3.5-5.1); PROTEIN - SERUM 8.9 g/dL (6.4-8.2)
[2019-06-03 04:30] VITALS: BP 149/96
[2019-06-03 08:06] VITALS: BP 166/105
--- NOTE | 2019-06-03 09:10 | NUR ---
RECIVED REPORT. PATIENT IS RESTING AT THIS TIME. HE IS WATCHING TV. GONSALO AT BEDSIDE.
[2019-06-03 11:47] VITALS: BP 122/71
--- NOTE | 2019-06-03 11:57 | NUR ---
JENNYFER BHAT APN, SPOKE WITH DR HERNANDEZ @ [facility] FOR DOCTOR TO DOCTOR TRANSFER OF PT BACK TO [facility].
--- NOTE | 2019-06-03 13:10 | NUR ---
PATIENT SIGNED DISCHARGE PAPERS. ATTEMPTING TO CALL REPORT ORDERED.
--- NOTE | 2019-06-03 13:56 | NUR ---
CHECKING BLOOD PRESSURE AND OXYGEN SATURATION AGAIN. LEFT 02 OFF FOR 30 MIN. TO SEE IS HE CAN TOLERATED ROOM AIR.
--- NOTE | 2019-06-03 14:22 | NUR ---
PATIENT IS 95% ON ROOM AIR. CALLED [facility] X[facility]. PHONE IS BUSY. WILL CONTINUE TO CALL.
--- NOTE | 2019-06-03 14:26 | NUR ---
CALLED AND GAVE REPORT AT 1330, TO WAYNE MORAES AT [facility]. STILL ATTEMPTING TO CALL THEM TO GET TRANSPORTATION.
--- NOTE | 2019-06-03 14:47 | NUR ---
CALLING FOR TRANSPORTATION . GOT THROUGH TO SECURITY AT [facility]. GONSALO IS STILL AT BEDSIDE . THEY ARE SENDING A VAN FROM [place] NOW. IT WILL BE HERE IN ABOUT AN HOUR.
--- NOTE | 2019-06-03 16:24 | NUR ---
REMOVED IV FROM RIGHT FA CATH INTACT.
--- NOTE | 2019-06-03 16:39 | NUR ---
THE TRANSPORT IS HERE TO COLLECT PATIENT.
--- NOTE | 2019-06-03 16:52 | NUR ---
PATIENT HAS BEEN DISCHARGED. DISCHARGE COMPLETE,AND PAPERS SIGNED. TWO GAURDS CAME TO TRANSPORT THE PATIENT BACK TO RETIREMENT. HE WENT DOWNSTAIRS BY WHEEL CHAIR. HE IS BEING TRANSPORTED IN THE [facility]. ALL PATIENT BELONGINGS REMOVED FROM THE ROOM AND WENT WITH THE PATIENT.
--- NOTE | 2019-06-04 08:51 | MORECARE ---
CASE MANAGEMENT DISCHARGE SUMMARY PATIENT: TANISHA FLOOD UNIT: [id number] ADM DATE: 05/28/19 AGE: 29 : 89 SEX: M ROOM/BED: D.2106 AUTHOR: MORENO,DOC PHYSICIAN: REFERRING PHYSICIAN: VAL ALBERT MD DATE OF SERVICE: 06/04/19 Discharge Plan Patient Name: TANISHA FLOOD Facility: [facility]:[place]ink : 1990 Planned Disposition: Court\Law Enforcement Anticipated Discharge Date: 06/03/19 Discharge Date: 06/03/2019 Expected LOS: 6 Initial Reviewer: [email or web address] Initial Review Date: 05/29/2019 Generated: 06/04/19 9:50 am DCP- Discharge Planning Updated by [email or web address]: Catia Gomez on 05/30/19 11:[address] LATE ENTRY 05/29/19 Patient Name: TANISHA FLOOD Admission Status: Elective Accout number: [id number] Admission Date: 05-28-2019 : 1990 Admission Diagnosis: Attending: VAL ALBERT Current LOS: 1 Anticipated DC Date: Planned Disposition: Court\Law Enforcement Primary Insurance: MEDICAID CARE HOME PENDING Discharge Planning Comments: PATIENT IS AN INMATE AT [facility] AND WILL BE RETURNING THERE UPON DISCHARGE. GUARD AT BEDSIDE. Body Former: Catia Gomez DCPIA - Discharge Planning Initial Assessment Updated by [email or web address]: Catia Gomez on 05/30/19 12:23 pm * Is the patient Alert and Oriented? Yes * How many steps to enter\exit or inside your home? * PCP [facility] * Pharmacy [facility] * Preadmission Environment Other * Other Environment [facility] * Facility Name [facility] * ADLs Independent * List name and contact numbers for known caregivers / representatives who currently or will assist patient after discharge: [facility] * Verbal permission to speak to the caregivers and representatives has been obtained from the patient. N/A * Please name any agencies selected above. HEMODIALYSIS PATIENT * Additional services required to return to the preadmission environment? No * Can the patient safely return to the preadmission environment? Yes Last DP export: 05/30/19 11:31 a Patient Name: TANISHA FLOOD Page [id number] at 0851 All edits/amendments must be made on the electronic document DICTATION DATE: 06/04/19849 DENTAL BILLING SPECIALIST: ROSA ELENA 06/04/1950 RPT#: [id number] DC DATE:06/03/19 STATUS: DIS IN [facility] [address] [place] [address] END OF REPORT
== END 2019-06-03 17:12 | DRG 291 ==
LOC: D.ER 06:09 → D.ICU 07:24 → D.M2 05-31 18:32
PROVIDERS: Family Medicine; Internal Medicine; Radiology Vascular & Interventional Radiology; ADMIT Internal Medicine Nephrology; ATTEND Internal Medicine Nephrology
PROC: 0W993ZZ Drainage of Right Pleural Cavity, Percutaneous Approach (ICD-10-PCS; principal; 2019-05-30 14:01)
DX: I13.2 Hypertensive heart and chronic kidney disease with heart failure and with stage 5 chronic kidney disease, or end stage renal disease (principal); N18.6 End stage renal disease; I48.92 Unspecified atrial flutter; E87.5 Hyperkalemia; I42.9 Cardiomyopathy, unspecified; I50.9 Heart failure, unspecified; Z99.2 Dependence on renal dialysis; F32.9 Major depressive disorder, single episode, unspecified